=== PATIENT | female | born 1960 | race Caucasian/White ===

== ENCOUNTER 2018-07-10 11:53 | Outpatient (CLI) | payer OTHER, SELFPAY ==
[2018-07-10 13:30] LABS: ALT 40 U/L (12-78); AST 20 U/L (15-37); Albumin 3.6 g/dL (3.4-5.0); Alkaline Phosphatase 85 U/L (46-116); Anion Gap 6.6 mmol/L (3-11); BUN 16 mg/dL (7-18); Bilirubin, Total 1.1 mg/dL (0.2-1.0); CO2 31.4 mmol/L (21.0-32.0); CREATININE 0.71 mg/dL (0.55-1.02); Chloride 104 mmol/L (98-107); Cholesterol 192 mg/dL (50-200); Glucose 85 mg/dL (70-100); HDL Cholesterol 53 mg/dL (40-60); LDL CHOLESTEROL 131 mg/dL (<100); Sodium 142 mmol/L (136-145); Total Protein 6.8 g/dL (6.4-8.2); Triglyceride 56 mg/dL (30-150)
== END 2018-07-10 12:13 ==
PROVIDERS: PCP Family Medicine; Visit Provider Family Medicine
DX: Z00.00 Encounter for general adult medical examination without abnormal findings (principal); I10 Essential (primary) hypertension
CPT/HCPCS: 36415; 80053; 80061; 83721

== ENCOUNTER 2018-07-10 12:20 | Outpatient (REF) | payer OTHER, SELFPAY ==
--- NOTE | 2018-07-10 11:00 | PAPFT_PTH ---
PATIENT: Marielle Summers LOC: [facility] U#:[id number] AGE/SX: 58/F ROOM: RE07/10/[address]: Rosi De Leon MD, DC : 1960 BED: DIS: 07/10/2018 SPEC #: [id number] RECD: 07/10/18 12:59 STATUS: KAYLA RAMSEY #: [id number] ASMITA: 07/10/18 11:[address]: Rosi De Leon DEPT: [facility] Cytology RECD BY: Mayelin Santos Tissues: 1 - CX/ENDOCX FOR PAP SMEARS Procedures: PAP THIN PREP/UVM Screening HPV DNA PROBE Comments: [id number]
== END 2018-07-10 12:40 ==
LOC: LBN 12:20
PROVIDERS: PCP Family Medicine; Visit Provider Family Medicine
DX: Z12.4 Encounter for screening for malignant neoplasm of cervix (principal); Z11.51 Encounter for screening for human papillomavirus (HPV)
CPT/HCPCS: 88142; 87624

== ENCOUNTER 2018-07-18 01:38 | Outpatient (CLI) | payer OTHER, SELFPAY ==
--- NOTE | 2018-07-18 08:00 | DI.MAMMO_ITS ---
SYMPTOM/DIAGNOSIS: SCREENING, Z12.31 MAMMOGRAMS: Mammograms were interpreted according to the usual protocol including computer analysis with CAD system, tomosynthesis and C view imaging. The breast tissue is of moderate radiodensity. Small, well circumscribed bilateral areas of nodularity are demonstrated and appear stable when compared with previous images. There are no suspicious calcifications. SUMMARY: No interval change. No evidence of malignancy. Category 2, yearly screening mammography is recommended. Breast density, category B. MQSA ASSESSMENT OF FINDINGS: Negative with benign findings. Category 2. Patient will receive a letter notifying them of these results. BI-RADS category B. There are scattered areas of fibroglandular density.
== END 2018-07-18 01:58 ==
PROVIDERS: PCP Family Medicine; Visit Provider Family Medicine
DX: Z12.31 Encounter for screening mammogram for malignant neoplasm of breast (principal)
CPT/HCPCS: 77063; 77067

== ENCOUNTER 2018-09-13 00:32 | Outpatient (CLI) | payer OTHER, SELFPAY ==
--- NOTE | 2018-09-13 11:29 | DI.MRI_ITS ---
SYMPTOMS/DIAGNOSIS: SPRAIN OF LEFT SHOULDER S/P FALL ON MARCH 27, 2018, S43.492A, M99.01, M99.02 MRI OF THE LEFT SHOULDER: Axial T2 fat-sat, axial proton density, coronal T2 fat-sat and coronal proton density and sagittal T2 fat-sat and sagittal T1 pulse sequences were performed. The bony signal is normal. The supraspinatus, infraspinatus, subscapularis and biceps tendons are intact. There is nothing to suggest a labral tear. SUMMARY: No evidence of a fracture. No evidence of an internal derangement.
== END 2018-09-13 00:52 ==
PROVIDERS: PCP Family Medicine; Visit Provider Chiropractor
DX: S43.492A Other sprain of left shoulder joint, initial encounter (principal); Z91.81 History of falling
CPT/HCPCS: 73221

== ENCOUNTER 2019-03-05 13:13 | Outpatient (CLI) | payer OTHER, SELFPAY ==
[2019-03-05 14:31] LABS: ALT 35 U/L (14-59); AST 19 U/L (15-37); Albumin 3.8 g/dL (3.4-5.0); Alkaline Phosphatase 99 U/L (46-116); BUN 15 mg/dL (7-18); Bilirubin, Total 1.1 mg/dL (0.2-1.0); CREATININE 0.74 mg/dL (0.55-1.02); Calculated LDL 119 mg/dL; Chloride 104 mmol/L (98-107); Cholesterol 189 mg/dL (50-200); Glucose 91 mg/dL (70-100); HDL Cholesterol 55 mg/dL (40-60); Sodium 141 mmol/L (136-145); TSH (W/Ref FT4) 1.44 uIU/mL (0.36-3.74); Total Protein 6.9 g/dL (6.4-8.2); Triglyceride 75 mg/dL (30-150)
== END 2019-03-05 13:33 ==
PROVIDERS: PCP Family Medicine; Visit Provider Family Medicine
DX: R00.2 Palpitations (principal); R19.8 Other specified symptoms and signs involving the digestive system and abdomen
CPT/HCPCS: 36415; 80053; 80061; 84443

== ENCOUNTER 2019-03-07 00:57 | Outpatient (CLI) | payer OTHER, SELFPAY ==
--- NOTE | 2019-03-07 07:37 | DI.RAD_ITS ---
SYMPTOM/DIAGNOSIS: CP, HIATAL HERNIA R07.9 PA AND LATERAL CHEST: 03/07 The heart is normal in size. The lungs are clear. The mediastinal structures and pleura appear intact. CONCLUSION: Normal chest.
--- NOTE | 2019-03-07 07:37 | DI.US_ITS ---
SYMPTOM/DIAGNOSIS: ABDOMINAL PAIN, MOSS STOOLS, R19.8 SYMPTOMS INVOLVING DIGESTIVE SYSTEM ABDOMINAL ULTRASOUND: 03/07 The visualized liver parenchyma normal in appearance. Note is made of cholelithiasis with multiple small gallstones seen. No biliary dilatation. Gallbladder wall is not thickened and there is no pericholecystic fluid collection. Kidneys are unremarkable in appearance. Incidental simple 3 cm left renal cyst noted. The spleen appears normal. Abdominal aorta and IVC are of normal diameter. CONCLUSION: Cholelithiasis. There appear to be at least a couple small gallbladder polyps as well.
== END 2019-03-07 01:17 ==
PROVIDERS: PCP Family Medicine; Visit Provider Family Medicine
DX: R10.9 Unspecified abdominal pain (principal); R19.5 Other fecal abnormalities; K80.20 Calculus of gallbladder without cholecystitis without obstruction; K82.4 Cholesterolosis of gallbladder; R07.9 Chest pain, unspecified
CPT/HCPCS: 71046; 76700

== ENCOUNTER 2019-03-18 09:00 | Day surgery (SDC) | payer OTHER, SELFPAY ==
--- NOTE | 2019-03-18 06:41 | ENDO_ITS ---
Date of service: 03/18/19 Time of Service: 10:39 Endoscopy Report DATE OF PROCEDURE: 03/18/19 PRE-OP DIAGNOSIS: Dysphagia, Nausea and Vomiting POST-OP DIAGNOSIS: other (Gastritis, esophagitis, Hiatal Hernia) PROCEDURE: EGD with biopsies SURGEON: Izzy Norman ANESTHESIA: other (General/ ASA 2/Phan Lees CRNA) ESTIMATED BLOOD LOSS: 3 PATHOLOGY: other (Pylorus, Antrum, GE junction) COMPLICATIONS: None DISPOSITION: same day INDICATIONS: Mrs. Summers is a pleasant 59 year old female seen in the office for progressive dysphagia, bloating, Nausea and Vomiting. Risks, benefits and complications have been reviewed. Complications include but are not limited to bleeding, pain, perforation, sore throat, aspiration, and adverse reaction to the medications. Questions were entertained and answered to their satisfaction and they wished to proceed. No guarantees were given or implied. FINDINGS: 1. 3 cm Hiatal hernia 2. moderate gastritis and esophagitis 3. Schatzki's ring PROCEDURE DESCRIPTION: After informed consent was obtained the patient was take to the procedure room and placed in a supine position. Monitors were applied and a time out was done. The patients name, date of , procedure type, allergies to medications and metal in their body was reviewed. A bite block was placed and the patient was sedated. Once sedated and comfortable the gastroscope was advanced through the oropharynx which was grossly normal into the esophagus. The proximal and mid- esophagus were normal. Normal peristalsis was observed. In the distal esophagus there was moderate inflammation noted. The scope was advanced into the stomach and through the pylorus into the 3rd portion of the duodenum. The duodenum was noted to be normal. The pylorus seemed tight at first but I was able to get the scope through without trouble. The scope was retracted back into the stomach and biopsies were done to rule out H. pylori. Biopsies were done of the pylorus as well. There were no ulcers. The scope was retroflexed. The cardia and fundus were noted to be normal. There was a small hiatal hernia noted. The scope was retracted back into the esophagus and biopsies were done of the GE junction to rule out Ortiz's. The Z line was irregular. The GE junction was at 32 cm. There was some inflammation and a ring of scar tissue. The scope was removed and the patient was woken up and taken back to [facility] in stable condition. Follow up: 2 week in the office. Start Omeprazole 40 mg daily and Carafate AC and HS x 2 weeks.
--- NOTE | 2019-03-18 06:43 | PDOC.DSDIS_ITS ---
Discharge Plan Disposition Patient Disposition: HOME Condition: Good Discharge Details Reason For Visit: Dysphagia Attending Provider: Izzy Norman Primary Care Provider: Rosi De Leon Home Meds and New Rx's Prescriptions: New sucralfate [Carafate] 1 gram tablet 1 gm PO Q6H Qty: 56 RF: 0 esomeprazole magnesium [Heartburn Treatment] 20 mg capsule,delayed release(DR/EC) 40 mg PO DAILY Qty: 60 RF: 0 Continued doxazosin 8 mg tablet 8 mg PO DAILY RF: 0 Ligaplex Supplement 1 tab 2 tab PO DAILY RF: 0 albuterol sulfate 90 mcg/actuation HFA aerosol inhaler 2 puff IH Q6H PRNRF: 0 acetaminophen [Tylenol Extra Strength] 500 MG tablet 2 tab PO HS PRNRF: 0 calcium carbonate-vitamin D3 [Caltrate with Vitamin D3] 1 EACH tablet 1 tab PO DAILY RF: 0 cholecalciferol (vitamin D3) [Vitamin D3] 2,000 UNIT capsule 2,000 unit PO DAILY RF: 0 metoprolol succinate 100 mg tablet extended release 24 hr 100 mg PO DAILY Qty: 90 RF: 4 Excedrin Migraine 1 EACH tablet 1 tab PO PRN PRNRF: 0 Discharge Instructions Instructions: Gastritis (DC), Diet for Stomach Ulcers and Gastritis (GEN), Upper Endoscopy (DC), Esophagitis (DC) Additional Instructions: Findings: Inflammation of the stomach, and esophagus Scar tissue in the esophagus Hiatal Hernia Follow up: 2 weeks Please call if you develop: fevers >101.5 Nausea or Vomiting Abdominal pain that is not transient DAY SURGERY UNIT POST ENDOSCOPY INSTRUCTIONS 1. Because there will be medication in your system for the next 24 hours, you may feel a little sleepy. Your coordination will be affected. Therefore: a. Do not drive or operate dangerous equipment for 24 hours. b. Do not drink alcohol beverages for 24 hours (not even beer). c. Plan to go home and rest for the day. 2. Generally there are no restrictions on your activity after a day or so has gone by, but you may feel a bit fatigued for a few days. 3 After you arrive home you may have a light meal and return to a normal diet as you can tolerate it without feeling sick to your stomach. 4. After surgery, you may feel pain or discomfort. This should be only transient , but if it persists please contact your doctor. 5. If there are any questions regarding the findings of your procedure, please feel free to contact your doctor. 6. If you are unable to contact your doctor with a problem, contact the hospital at [phone]. 7. Continue all your regular medications unless directed otherwise. I understand the above instructions and have no questions. Signature of Patient or Responsible Adult Escort Date/Time Name of Responsible Adult Escort Signature of Nurse Date/Time Activity:: Activity as Tolerated Diet:: low acid diet Discharge Orders Discharge Orders: Discharge Order (Routine); Ordered 03/18/19 Ordered By: Izzy Norman DS: Diagnosis Discharge Diagnosis (1) H/O esophagogastroduodenoscopy: Status: Chronic (2) Dysphagia: Status: Acute (3) Gastritis: Status: Acute (4) Esophagitis determined by endoscopy: Status: Acute (5) Schatzki's ring of distal esophagus: Status: Acute
[2019-03-18 09:19] VITALS: BP 131/84; PULSE 70; RESP 15; TEMP 36.5; O2SAT 97
[2019-03-18] MEDS: Lactated Ringers 1,000 ML 80 ML IV (09:32)
--- NOTE | 2019-03-18 10:42 | STOM_PTH ---
PATIENT: Marielle Summers LOC: [facility] U#:[id number] AGE/SX: 59/F ROOM: RE03/18/[address]: Izzy Norman MD : 1960 BED: DIS: 03/18/2019 SPEC #: [id number] RECD: 03/18/19 12:46 STATUS: KAYLA RE #: [id number] ASMITA: 03/18/19 10:[address]: Izzy Norman DEPT: Surgical Specimen RECD BY: Mayelin Santos ENTERED: 03/18/19 12:48 SP TYPE: STOMACH OTHR DR: Rosi De Leon MD, DC Tissues: 1 - STOMACH BIOPSY 2 - STOMACH BIOPSY 3 - ESOPHAGUS BIOPSY Procedures: GROSS AND MICRO LEVEL 4 Comments: [id number]
[2019-03-18 11:35] VITALS: BP 128/69; PULSE 62; RESP 16; TEMP 36; O2SAT 98
== END 2019-03-18 11:50 | disposition home or self-care (01) ==
LOC: SUR 09:01
PROVIDERS: PCP Family Medicine; Visit Provider Surgery
PROC: 0DJ68ZZ Inspection of Stomach, Via Natural or Artificial Opening Endoscopic (ICD-10-PCS; CPT 43235; principal; 2019-03-18 10:30)
DX: R13.10 Dysphagia, unspecified (principal); R14.0 Abdominal distension (gaseous); R11.10 Vomiting, unspecified; K21.0 Gastro-esophageal reflux disease with esophagitis; K44.9 Diaphragmatic hernia without obstruction or gangrene; K22.2 Esophageal obstruction; I10 Essential (primary) hypertension
CPT/HCPCS: 43239; 88305

== ENCOUNTER 2019-08-14 02:28 | Outpatient (CLI) | payer OTHER, SELFPAY ==
--- NOTE | 2019-08-14 07:50 | DI.MAMMO_ITS ---
EXAM: MG MAMMO SCREENING CLINICAL HISTORY: screening,Z12.39. TECHNIQUE: Bilateral full field digital CC and MLO mammographic images were obtained with 3D tomosyn thesis and utilizing computer aided detection (CAD). COMPARISON: Available for comparison. FINDINGS: Masses/Architectural Distortion: Stable bilateral nodules. No suspicious nodules. Microcalcifications: No suspicious pleomorphic-type are seen. Skin Thickening/Nipple Retraction: None. IMPRESSION: 1. No significant interval change with no specific features of malignancy noted. 2. Unless there is more urgent need, screening mammography is recommended, as per [employer] guidelines. ACR BI-RAD Category- 1 Negative Breast Density - Category B - Scattered areas of fibroglandular density A negative radiographic report should not delay biopsy if a dominant or clinically suspicious mass is present. Up to ten percent of cancers are not identified on mammography. A negative report may reinforce clinical impression. Adenosis and dense breasts may obscure an underlying neoplasm. False positive reports average 6 to 10%. Patient will receive a letter notifying them of these results.
== END 2019-08-14 02:48 ==
PROVIDERS: PCP Family Medicine; Visit Provider Family Medicine
DX: Z12.31 Encounter for screening mammogram for malignant neoplasm of breast (principal)
CPT/HCPCS: 77063; 77067

== ENCOUNTER 2019-10-04 15:00 | Outpatient (REF) | payer OTHER, SELFPAY ==
[2019-10-04 16:37] LABS: Bilirubin Negative (Negative); Blood Large (Negative); Clarity Clear (Clear); Glucose Negative (Negative); Ketones Negative (Negative); Leukocyte Esterase Moderate (Negative); Nitrite Negative (Negative); Urobilinogen 0.2 EU/dL (Up TO 0.2); pH 6.5 (5-8)
[2019-10-04 16:48] LABS: Bacteria Moderate HPF (Negative); C & S Indicated? Yes; Casts Negative LPF (Negative); Crystals Negative HPF (Negative); Epithelial Cells Rare HPF (Negative); Mucus Negative (Negative); Other Cells Few Renal (Negative); RBC >50 HPF (0-2); WBC 20-50 HPF (0-5)
== END 2019-10-04 15:20 ==
LOC: LBN 15:00
PROVIDERS: PCP Family Medicine; Visit Provider Family Medicine
DX: N39.0 Urinary tract infection, site not specified (principal); R35.0 Frequency of micturition
CPT/HCPCS: 81003; 81015; 87086

== ENCOUNTER 2019-10-23 08:05 | Emergency (ER) | payer OTHER, SELFPAY ==
[2019-10-23] VITALS (27 sets, daily range): BP systolic 122–198; BP diastolic 59–86; PULSE 44–77; RESP 11–29; TEMP 36.6; O2SAT 72–99
--- NOTE | 2019-10-23 08:14 | ED.GENADUL_ITS ---
Discharge Plan Disposition Patient Disposition: HOME Condition: Good Discharge Details Chief Complaint: Abd Prob Clinical Impression: Urolithiasis, Right flank pain Primary Care Provider: Rosi De Leon ED Provider: Juanito Ortega Home Meds and New Rx's Prescriptions: Continued albuterol sulfate 90 mcg/actuation HFA aerosol inhaler 2 puff IH Q6H PRN (Reason: bronchospasm) Qty: 18 RF: 4 doxazosin 8 mg tablet 8 mg PO DAILY Qty: 90 RF: 5 esomeprazole magnesium [Heartburn Treatment] 20 mg capsule,delayed release(DR/EC) 20 mg PO DAILY Qty: 90 RF: 5 metoprolol succinate 100 mg tablet extended release 24 hr 100 mg PO DAILY Qty: 90 RF: 4 calcium carbonate-vitamin D3 [Caltrate with Vitamin D3] 1 EACH tablet 1 tab PO DAILY RF: 0 cholecalciferol (vitamin D3) [Vitamin D3] 2,000 UNIT capsule 2,000 unit PO DAILY RF: 0 Excedrin Migraine 1 EACH tablet 1 tab PO PRN PRNRF: 0 Discharge Instructions Instructions: Kidney Stones (ED) Additional Instructions: This time your work-up shows that you have a kidney stone, I suspect that you have passed it by this time as your pain is gone. Please take Tylenol or Motrin as needed if you have any return of your pain. Please drink plenty of fluids, stay well-hydrated and follow-up closely with Dr. Aguiar's clinic. Please take the Zofran as needed for nausea. If you notice any worsening of your symptoms, or any new symptoms such as vomiting, diarrhea, fever, chills, shortness of breath, chest pain, numbness, weakness, or fainting , please return immediately to the emergency department for reevaluation. Please follow up with your primary care provider as soon as possible for reassessment and reevaluation. As always, it was a pleasure participating in your medical care today. Referrals: Corky Aguiar MD [ [facility] STAFF PHYSICIAN] - Rosi De Leon MD, [place] [Primary Care Provider] - Medical Decision Making This is a 59-year-old female with past medical history of hypertension who presents today for evaluation of right flank pain. Patient states that this morning the pain came on suddenly, sharp and achy in nature, and radiates from her right flank all the way to her right mid anterior abdomen. She does admit to vomiting and occasional loose stool but denies any hematemesis hematochezia or melena. She does admit to notable dysuria in conjunction with mild hematuria. She denies history of kidney stones in the distant past but does state that earlier this months she had symptoms of UTI, was started on Cipro, and did pass a stone at the end. Patient denies any other complaints at this time. Past surgical history is positive for appendectomy. She does have known gallstones. She denies any tearing or ripping sensation in her abdomen, she denies any chest pain, chest tightness, chest heaviness. She denies any history of cardiac disease. Physical exam demonstrates mild to moderate reproducible right-sided tenderness, mild CVA tenderness. Urine does demonstrate hematuria. Differential is highest for kidney stone, but also includes gallbladder pathology and less likely diverticulitis. We will treat the patient's pain, hydrate, get a renal study monitor closely and reassess. 9:25 AM Personal review of CT scan does show a 5 mm kidney stone with mild to moderate hydronephrosis on the right. Renal function stable, no evidence of urinary tract infection, and blood work is otherwise unremarkable with no evidence of renal impact. However in spite of this the patient's pain has been remarkably difficult to control. Patient is already received 2 mg of Dilaudid, 4 mg of morphine, Toradol, 8 of Zofran, Flomax, and has had almost no relief of her symptoms at all. Patient does state that she is used opiates in the past for headaches but this is in the very distant past and she has not used any opiates for years. I did discuss with her the option of using ketamine as well as the risk and benefits and she is open to this. We will use low-dose ketamine for potential treatment of her pain at 0.2 mg/kg. Patient states that she is still in excruciating pain and would like this. 9:38 AM Radiology/Dr. Frederick contacted us, CT scan does show evidence of 5 mm stone in conjunction with mild to moderate hydronephrosis. No evidence of urinoma at this point. Subtherapeutic dose ketamine was given, unfortunately the patient had an episode of vomiting with this, she was upright at 90 degrees, vomitus was, oxygenation remained stable. She was placed on supplemental oxygen as a precaution. She remained stable. No evidence of airway compromise, respiratory compromise. Thankfully her pain did resolve with this, unfortunately her nausea persists. We will contact urology for potential admission as I do not feel that the patient would be a good candidate for discharge with her pain and symptomatology. Of note CT scan did show evidence of mild cardiomegaly and small bilateral pleural effusions, clinically she shows no evidence of heart failure on exam. No significant pitting edema. Minimal trace pitting edema in lower extremities bilaterally. No signs of significant CHF. 1 PM An extended period of time was spent observing the patient, all supplemental oxygen was removed and she had no residual hypoxemia whatsoever after the episode of vomiting. Portable chest x-ray shows no evidence of aspiration pneumonitis. After notable observation. For the complete removal of the effects of ketamine the patient actually has complete resolution of her pain. It is potential that the patient has passed the stone at this time. She has had mild nausea, however this is slowly and gradually improved. After taking a nap she is awoken and feels much better. She is asking to go home. I did discuss with the patient admission/observation to the hospital , and at this time through notable discussion, weighing the risks and benefits, utilizing a shared decision making process, and with a very clear discussion on the benefit of admission and the risks associated with discharge including the unlikely but potential worst case scenario of or lifelong disability the patient has refused admission and would like to go home. Patient is of a appropriate age to make decisions. The patient is of sound mind, appears clinically sober, and has capacity to make decisions by my clinical exam. Respecting the patient's wishes, they will be discharged home. At this time with the complete resolution of her pain I suspect that the stone is passed, and that respecting her wishes she can be discharged home. We will place her on the list for follow-up with urology. I did contact urology and discussed the entirety of the case with him as well. I have extensively reviewed the treatment plan and discharge instructions with the patient. I have addressed all patient concerns at this time. The patient was made aware of what symptoms to monitor for that would warrant a return to the emergency department. Discussed the plan with the patient, they demonstrate verbal understanding and agreement with our assessment and plan at this time. IMPRESSION: Obstructing 4 millimeter distal right ureteral calculus, marked right hydronephrosis. Nonobstructing right renal calculus also noted Cardiomegaly and small bilateral pleural effusions noted. FINDINGS: Portable AP chest obtained at 1020 hours. The heart is not enlarged. Lungs are clear. No evidence of consolidation or atelectasis. No pleural effusion on this frontal film. IMPRESSION: Negative AP chest. EKG 8: 33 Rate 66, intervals normal, sinus rhythm, no significant ST elevations or depressions, no evidence of STEMI. No Q waves. HPI General Date/Time Provider Initiated Documentation: 10/23/19 08:05 . HPI Narrative: This is a 59-year-old female with past medical history of hypertension who presents today for evaluation of right flank pain. Patient states that this morning the pain came on suddenly, sharp and achy in nature, and radiates from her right flank all the way to her right mid anterior abdomen. She does admit to vomiting and occasional loose stool but denies any hematemesis hematochezia or melena. She does admit to notable dysuria in conjunction with mild hematuria. She denies history of kidney stones in the distant past but does state that earlier this months she had symptoms of UTI, was started on Cipro, and did pass a stone at the end. Patient denies any other complaints at this time. Past surgical history is positive for appendectomy. She does have known gallstones. She denies any tearing or ripping sensation in her abdomen, she denies any chest pain, chest tightness, chest heaviness. She denies any history of cardiac disease. Related Data Home Medications Medication Instructions Recorded Confirmed calcium carbonate-vitamin D3 1 tab PO DAILY 10/16/12 10/23/19 [Caltrate with Vitamin D3] Excedrin Migraine 1 tab PO PRN PRN 05/25/15 10/23/19 cholecalciferol (vitamin D3) 2,000 unit PO DAILY 06/15/17 10/23/19 [Vitamin D3] albuterol sulfate 90 mcg/actuation 2 puff IH Q6H PRN #18 gm 07/15/19 10/23/19 aerosol inhaler doxazosin 8 mg tablet 8 mg PO DAILY #90 tab 07/15/19 10/23/19 esomeprazole magnesium 20 mg 20 mg PO DAILY #90 cap 07/15/19 10/23/19 capsule,delayed release metoprolol succinate 100 mg 100 mg PO DAILY #90 tab 07/15/19 10/23/19 tablet,extended release 24 hr Previous Rx's Medication Instructions Recorded albuterol sulfate 90 mcg/actuation 2 puff IH Q6H PRN #18 gm 07/15/19 aerosol inhaler doxazosin 8 mg tablet 8 mg PO DAILY #90 tab 07/15/19 esomeprazole magnesium 20 mg 20 mg PO DAILY #90 cap 07/15/19 capsule,delayed release metoprolol succinate 100 mg 100 mg PO DAILY #90 tab 07/15/19 tablet,extended release 24 hr Allergies Allergy/AdvReac Type Severity Reaction Status Date / Time sumatriptan Allergy Severe CAN'T Unverified 10/23/19 08:13 BREATHE amlodipine AdvReac Intermediate edema Unverified 10/23/19 08:13 hydrochlorothiazide AdvReac Intermediate rash Unverified 10/23/19 08:13 [From Hyzaar] losartan potassium AdvReac Intermediate rash Unverified 10/23/19 08:13 [From Hyzaar] codeine AdvReac Mild RASH Unverified 10/23/19 08:13 lisinopril AdvReac Cough Unverified 10/23/19 08:13 General Stated Complaint: Abd Prob SURI: 3 Review of Systems All systems reviewed & are unremarkable except as noted in HPI and below PFSH Medical History (Updated 10/23/19 @ 13:00 by Juanito Ortega DO) Actinic keratosis (Chronic 06/09/16) Annual physical exam (Acute 05/25/15) Dysphagia (Inactive) Edema (Chronic) Esophagitis determined by endoscopy (Inactive) Essential hypertension (Chronic 06/12/13) Gastroesophageal reflux disease with esophagitis (Resolved 04/05/11) Hiatal hernia (Resolved) Internal hemorrhoids without complication (Chronic) Rectocele (Chronic) Rotator cuff syndrome of shoulder and allied disorders (Resolved) 10/30/12 Rotator cuff syndrome of shoulder and allied disorders (Inactive 10/30/12) Schatzki's ring of distal esophagus (Inactive) Visual disturbance (Resolved) 04/05/11 Surgical History (Updated 04/19/19 @ 08:46 by Izzy Norman MD) Cervical Procedure (05/25/15) exam under anesthesia and cauterization of bleeding endometrial polyp stalk. aoc H/O esophagogastroduodenoscopy (Resolved ~03/18/19) History of appendectomy (Chronic) History of gynecologic surgery (Resolved) 04/26/15 exam under anesthesia and cauterization of bleeding endometrial polyp stalk History of gynecological procedure (Inactive) Family History (Updated 07/16/19 @ 10:27 by Germán Parada) Mother Essential hypertension Breast cancer Uterine cancer Father , age 76 Diabetes Essential hypertension Heart disease Hyperlipidemia Skin cancer Sister Diabetes Essential hypertension Hyperlipidemia Maternal Grandfather No problems noted. Paternal Grandfather , age 66 Essential hypertension Heart disease Hyperlipidemia Maternal Grandmother , AGE 82 Diabetes Essential hypertension Heart disease COPD (chronic obstructive pulmonary disease) Paternal Grandmother , age 73 Kidney failure Sister Essential hypertension Son Alcohol abuse Essential hypertension Daughter No problems noted. Daughter No problems noted. Brother Alcohol abuse Stroke Social History (Updated 07/16/19 @ 10:24 by Germán Parada) Smoking/Tobacco Use Status: Never Alcohol Intake: current Alcohol Intake frequency: holidays/special occasions only Drug use: Never Substance use type: does not use Caregiver/Support person: No Household members: none Housing: house Communication Needs: None Do you need help understanding health information?: Never Pets and animals: Yes Pets and animals: dog(s) Sexually active: Yes Do you think of yourself as: straight/heterosexual Current gender identity: female What is your relationship status?: How often do you talk on the phone with friends or family?: decline to answer How often do you get together with friends or relatives?: decline to answer How often do you attend confucianist or rastafarian services?: decline to answer Do you belong to any clubs or organized social groups?: no Panel score (0-1 are the most socially isolated patients): 0 What type of physical activity do you participate in: decline to answer Duration: decline to answer Frequency: decline to answer Roslyn/Anabaptist: Orthodoxy Special roslyn needs: No Seatbelt use: always Helmet use: No Drive intox or ride w/intox peg driver: No Do you feel safe at home: Yes Do you feel safe in your relationship?: Yes Exam Narrative Exam Narrative: 1.Const: Well-nourished, Well-developed, appearing stated age 2.Eyes: PERRL, no conjunctival injection, and symmetrical lids. 3.ENT: Atraumatic external nose and ears. Moist MM. Neck: Symmetric, trachea midline, No thyromegaly. 4.CVS: +S1/S2, No murmurs or gallops. Peripheral pulses 2+ and equal in all extremities. Brisk capillary refill in all extremities. 5.RESP: Unlabored respiratory effort. Clear to auscultation bilaterally. No wheezes rales or rhonchi 6.GI: Soft, nondistended, mild to moderate right-sided abdominal tenderness for the right mid and right lower abdominal quadrants. Mild right CVA tenderness. No left-sided tenderness. Negative Barcenas sign 7.MSK: Normocephalic/Atraumatic, Extremities w/o deformity or ttp No cyanosis or clubbing, Normal movement of all extremities 8.Skin: Warm, Dry. No rashes or lesions. 9.Neuro: sap director II-XII grossly intact. Sensation grossly intact, no focal neurologic deficits. 10.Psych: (AAO) x3. Appropriate mood and affect Course Vital Signs Vital signs: Vital Signs Temperature 36.6 C 10/23/19 08:09 Pulse 77 10/23/19 08:09 Respiratory Rate 19 10/23/19 08:09 Blood Pressure 198/82 H 10/23/19 08:09 Pulse Oximetry 98 10/23/19 08:09 Temperature 36.6 C 10/23/19 08:09 Pulse 77 10/23/19 08:09 Respiratory Rate 19 10/23/19 08:09 Blood Pressure 198/82 H 10/23/19 08:09 Blood Pressure Position Supine 10/23/19 08:09 Pulse Oximetry 98 10/23/19 08:09 Oxygen Delivery Method Room Air 10/23/19 08:09 Oxygen Flow Rate 0 10/23/19 08:09 Pain Level 9 10/23/19 08:09
[2019-10-23] MEDS: Ketorolac 15 MG/ML VIAL IVP ×2 (08:22→10:07)
[2019-10-23] MEDS: Normal Saline 500 ML IV (08:23)
[2019-10-23] MEDS: Ondansetron 4 MG/2 ML VIAL IVP ×3 (08:24→09:10)
[2019-10-23] MEDS: HYDROmorphone 2 MG/ML VIAL 1 MG IVP ×2 (08:25→08:43)
[2019-10-23 08:26] LABS: Bilirubin Negative (Negative); Blood Large (Negative); Clarity Cloudy (Clear); Glucose Negative (Negative); Ketones Negative (Negative); Leukocyte Esterase Negative (Negative); Nitrite Negative (Negative); Specific Gravity >= 1.030 (1.005-1.025); Urobilinogen 0.2 EU/dL (Up TO 0.2)
[2019-10-23 08:32] LABS: Abs Immature Grans 0.02 k/cumm (0.0-0.09); Absolute Basophil Count 0.02 k/cumm (0.0-0.2); Absolute Lymphocyte Count 2.23 k/cumm (1.2-3.4); Absolute Monocyte Count 0.31 k/cumm (0.11-0.7); Absolute Neutrophil Count 3.42 k/cumm (1.2-6.7); Basophils % 0.3; HCT 44.1 % (36.0-46.0); HGB 14.2 g/dL (12.0-15.5); Immature Grans % 0.3 %; Lymphocytes % 37.2; Mean Corp. HGB Concentration 32.2 g/dL (32.0-36.0); Mean Corpuscular Hemoglobin 28.4 pg (27.0-33.0); Mean Corpuscular Volume 88.2 fL (80-95); Monocytes % 5.2; Platelet Count 320 x1000/uL (130-400); RBC Distribution Width 13.7 % (11.7-14.6)
[2019-10-23 08:35] LABS: Bacteria Few HPF (Negative); Epithelial Cells Moderate HPF (Negative); RBC >50 HPF (0-2); WBC 0-2 HPF (0-5)
[2019-10-23 08:36] LABS: C & S Indicated? No/Sq. Contamination
[2019-10-23 08:44] LABS: ALT 39 U/L (14-59); AST 21 U/L (15-37); Albumin 3.6 g/dL (3.4-5.0); Alkaline Phosphatase 95 U/L (46-116); Anion Gap 6.7 mmol/L (3-11); BUN 14 mg/dL (7-18); CO2 29.3 mmol/L (21.0-32.0); CREATININE 0.85 mg/dL (0.55-1.02); Calcium 9.2 mg/dL (8.5-10.1); Chloride 104 mmol/L (98-107); Glucose 132 mg/dL (74-106); Lipase 64 U/L (73-393); Potassium 3.6 mmol/L (3.5-5.1); Sodium 140 mmol/L (136-145); Total Protein 7.3 g/dL (6.4-8.2)
[2019-10-23 08:45] LABS: Troponin I < 0.05 ng/Ml (<0.06)
--- NOTE | 2019-10-23 08:59 | DI.CT_ITS ---
EXAM: CT RENAL COLIC WO CLINICAL HISTORY: right flank pain, hematuria TECHNIQUE: COMPARISON: No exams were available for comparison FINDINGS: CT examination of the abdomen and pelvis was performed without contrast administration. Note is made of small bilateral pleural effusions and there appears to be cardiomegaly. Visualized portions of liver and spleen are unremarkable. Pancreas appears intact by noncontrast CT criteria. Gallbladder and bile ducts are unremarkable. Abdominal aorta is of normal diameter. No significant abdominal wall hernia. No significant abdominal or pelvic adenopathy. Appendix not visualized. No evidence of diverticulitis or bowel obstruction. Food Mixer Assembler structures are unr emarkable for age. Adrenals appear normal bilaterally. Left kidney contains a fluid attenuation mass measuring 3 cm in diameter consistent with simple cyst. No left-sided hydronephrosis nephrolithiasis, or ureterolithia sis. Urinary bladder is essentially empty. Right kidney is markedly hydronephrotic. There is a nonobstructing midpole renal calculus on the rig ht. There is marked ureteral dilatation to the level of the right hip joint where there is an obstru cting 4 millimeter in diameter calculus a few cm above the ureterovesical junction. IMPRESSION: Obstructing 4 millimeter distal right ureteral calculus, marked right hydronephrosis. Nonobstructing right renal calculus also noted Cardiomegaly and small bilateral pleural effusions noted.
[2019-10-23] MEDS: Tamsulosin 0.4 MG CAPCR 0.8 MG PO (09:15)
[2019-10-23] MEDS: Ketamine 500 MG/10 ML VIAL 18 MG IVP (09:29)
--- NOTE | 2019-10-23 10:00 | DI.RAD_ITS ---
EXAM: XR PORTABLE CHEST AP CLINICAL HISTORY: vomited, r/o aspiration TECHNIQUE: COMPARISON: XR CHEST 2V PA LATERAL from 03/07/2019 FINDINGS: Portable AP chest obtained at 1020 hours. The heart is not enlarged. Lungs are clear. No evidence of consolidation or atelectasis. No pleural effusion on this frontal film. IMPRESSION: Negative AP chest.
[2019-10-23] MEDS: ACETAMINOPHEN 1,000 MG/100 ML BTL 400 MG IVPB (10:06)
[2019-10-23] MEDS: Metoclopramide 10 MG/2 ML VIAL IVP (10:14)
[2019-10-23] MEDS: Ondansetron O.D.T. 4 MG TABEF, 3 TABS/BTL PO (13:07)
--- NOTE | 2019-10-23 18:25 | NUR.NOTE ---
Nursing Note:Faxed Referral to urology
== END 2019-10-23 14:10 | disposition home or self-care (01) ==
PROVIDERS: Emergency Provider Student in an Organized Health Care Education/Training Program; PCP Family Medicine
DX: N13.2 Hydronephrosis with renal and ureteral calculous obstruction (principal); M54.5 Low back pain; I10 Essential (primary) hypertension; N20.0 Calculus of kidney; R09.02 Hypoxemia
CPT/HCPCS: 80053; 83690; 93005; 96361; 96374; 96375; 96376; 99284; 71045; 74176; 81003; 81015; 84484; 85025; 93010; J0131; J1885; J2405; J2765

== ENCOUNTER 2019-10-30 08:50 | Outpatient (CLI) | payer OTHER, SELFPAY ==
[2019-10-31 15:51] LABS: COVID-19 RT-PCR UVMMC Result Negative (Negative)
== END 2019-10-30 09:10 ==
PROVIDERS: PCP Family Medicine; Visit Provider Urology
DX: Z11.59 Encounter for screening for other viral diseases (principal)
CPT/HCPCS: U0003

== ENCOUNTER 2019-11-04 07:14 | Day surgery (SDC) | payer OTHER, SELFPAY ==
[2019-11-04] VITALS (9 sets, daily range): BP systolic 124–147; BP diastolic 58–95; PULSE 71–87; RESP 16–18; TEMP 36.4–37; O2SAT 93–98
--- NOTE | 2019-11-04 07:29 | W.PM.HP.N ---
Date of service: 11/04/19 Time of Service: 09:01 Assessment and Plan Assessment and plan (1) Right distal ureteral calculus: Status: Acute Assessment and plan: We will move ahead with cystoscopy, right retrograde pyelogram, right ureteroscopy and possible holmium laser lithotripsy of her ureteral stone History of Present Illness History of Present Illness Chief Complaint: Right Ureteral stone Narrative: This is a 59-year-old woman who is referred by the emergency room providers after she presented to the emergency department with right flank pain. She was evaluated with a noncontrast CT scan. She was found to have a right distal ureteral stone. This is the second episode of renal colic for the patient. The prior episode was 2 to 3 weeks ago. At that time, she mostly noticed bladder spasms and she passed a small stone fragment. This time, she developed severe flank and abdominal pain which necessitated a trip to the emergency room. She required large amounts of analgesics and her pain only improved after the use of ketamine. Her severe pain has improved, but she now has urinary frequency and urgency as well and has some groin discomfort. Her voided volumes are quite small. She has not noticed any discoloration of the urine. She has no known metabolic abnormalities associated with stones. Specifically, she has no history of hyperparathyroid disease or gout. Review of Systems Narrative: No fevers or chills No vision change or dysphasia No diabetes or thyroid No shortness of breath, cough or hemoptysis No chest pain or palpitations. Hx HTN No nausea, vomiting, hepatitis, ulcers, jaundice, diarrhea or constipation No seizures, strokes or peripheral neuropathy No bleeding disorders or anemia No gout PFSH Family History (Updated 07/16/19 @ 10:27 by Germán Parada) Mother Essential hypertension Breast cancer Uterine cancer Father , age 76 Diabetes Essential hypertension Heart disease Hyperlipidemia Skin cancer Sister Diabetes Essential hypertension Hyperlipidemia Maternal Grandfather No problems noted. Paternal Grandfather , age 66 Essential hypertension Heart disease Hyperlipidemia Maternal Grandmother , AGE 82 Diabetes Essential hypertension Heart disease COPD (chronic obstructive pulmonary disease) Paternal Grandmother , age 73 Kidney failure Sister Essential hypertension Son Alcohol abuse Essential hypertension Daughter No problems noted. Daughter No problems noted. Brother Alcohol abuse Stroke Social History (Updated 07/16/19 @ 10:24 by Germán Parada) Smoking/Tobacco Use Status: Never Alcohol Intake: current Alcohol Intake frequency: holidays/special occasions only Drug use: Never Substance use type: does not use Caregiver/Support person: No Household members: none Housing: house Communication Needs: None Do you need help understanding health information?: Never Pets and animals: Yes Pets and animals: dog(s) Sexually active: Yes Do you think of yourself as: straight/heterosexual Current gender identity: female What is your relationship status?: How often do you talk on the phone with friends or family?: decline to answer How often do you get together with friends or relatives?: decline to answer How often do you attend protestant or bahai services?: decline to answer Do you belong to any clubs or organized social groups?: no Panel score (0-1 are the most socially isolated patients): 0 What type of physical activity do you participate in: decline to answer Duration: decline to answer Frequency: decline to answer Roslyn/Anglican: Pentecostalism Special roslyn needs: No Seatbelt use: always Helmet use: No Drive intox or ride w/intox taxi truck driver: No Do you feel safe at home: Yes Do you feel safe in your relationship?: Yes Meds Home Medications and Allergies Home Medications Medication Instructions Recorded Confirmed Type calcium carbonate-vitamin D3 1 tab PO HS 10/16/12 11/04/19 History [Caltrate with Vitamin D3] Excedrin Migraine 1 tab PO PRN PRN 05/25/15 11/04/19 History albuterol sulfate 90 mcg/actuation 2 puff IH Q6H PRN #18 gm 07/15/19 11/04/19 Rx aerosol inhaler doxazosin 8 mg PO HS 10/31/19 11/04/19 History esomeprazole magnesium [Heartburn 20 mg PO HS 10/31/19 11/04/19 History Treatment] metoprolol succinate 100 mg PO HS 10/31/19 11/04/19 History Allergies Allergy/AdvReac Type Severity Reaction Status Date / Time sumatriptan Allergy Severe CAN'T Unverified 11/04/19 07:22 BREATHE amlodipine AdvReac Intermediate edema Unverified 11/04/19 07:22 hydrochlorothiazide AdvReac Intermediate rash Unverified 11/04/19 07:22 [From Hyzaar] losartan potassium AdvReac Intermediate rash Unverified 11/04/19 07:22 [From Hyzaar] codeine AdvReac Mild RASH Unverified 11/04/19 07:22 lisinopril AdvReac Cough Unverified 11/04/19 07:22 Exam Const General: cooperative, comfortable and no acute distress Neck Neck: supple Resp Effort & Inspection: normal respiratory effort Auscultation: clear to auscultation bilaterally Cardio Rate: regular rate Rhythm: regular rhythm GI Palpation: soft, no guarding and no masses Extrem General: no edema COVID-19 Screening Traveled to [place] from one of the affected countries or regions?: NO Medical treatment received for symptoms/illness related to travel?: Preop Covid testing done and negative
--- NOTE | 2019-11-04 07:30 | DI.RAD_ITS ---
EXAM: XR RETROGRADE IN OR INDICATION: Right distal ureteral calculus. COMPARISON: No exams were available for comparison TECHNIQUE: 2D digital imaging was performed. FINDINGS: C-arm fluoroscopy was utilized by Dr. Adamson during retrograde ureterography. Hard copy shows an ap parent calculus in the distal ureter and shows cannulation of the distal ureter. Please see Dr. Joe hdz's procedure note. Fluoroscopy time, 29 seconds. DATA REPOSITORY: RADIATION DOSE DELIVERED:
[2019-11-04] MEDS: Lactated Ringers 1,000 ML 80 ML IV (07:55)
[2019-11-04] MEDS: ceFAZolin 1 GM/50 ML BAG IVPB (09:42)
[2019-11-04] MEDS: Lidocaine 2% Jelly 6 ML SYR (10:00)
[2019-11-04] MEDS: Omnipaque 300 MG/ML 50 ML BTL (10:02)
--- NOTE | 2019-11-04 10:23 | W.PM.DSUDISC ---
Discharge Plan Disposition Patient Disposition: HOME Condition: Stable Discharge Details Reason For Visit: (R) URETERAL STONE Attending Provider: Corky Aguiar Primary Care Provider: Rois De Leon Home Meds and New Rx's Prescriptions: New ketorolac 10 mg tablet 10 mg PO TID PRN (Reason: pain) Qty: 10 RF: 0 No Action albuterol sulfate 90 mcg/actuation HFA aerosol inhaler 2 puff IH Q6H PRN (Reason: bronchospasm) Qty: 18 RF: 4 calcium carbonate-vitamin D3 [Caltrate with Vitamin D3] 1 EACH tablet 1 tab PO HS RF: 0 Excedrin Migraine 1 EACH tablet 1 tab PO PRN PRNRF: 0 metoprolol succinate 100 mg tablet extended release 24 hr 100 mg PO HS RF: 0 doxazosin 8 mg tablet 8 mg PO HS RF: 0 esomeprazole magnesium [Heartburn Treatment] 20 mg capsule,delayed release(DR/EC) 20 mg PO HS RF: 0 Discharge Instructions Additional Instructions: No need to strain urine F/U with me @ 6 weeks with renal US on day of appt May return to work 11/05/2019 if pain is well controlled Activity:: Activity as Tolerated Shower/Bathe:: 24 hours Diet:: As Tolerated Discharge Orders Discharge Orders: Discharge Order (Routine); Ordered 11/04/19 Ordered By: Corky Aguiar DS: Diagnosis Discharge Diagnosis (1) Right distal ureteral calculus: Status: Acute
--- NOTE | 2019-11-04 10:42 | W.PM.OP ---
Date of service: 11/04/19 Time of Service: 10:42 Operative Note Operative Note DATE OF PROCEDURE: 11/04/19 PRE-OP DIAGNOSIS: Right Ureteral Stone POST-OP DIAGNOSIS: same PROCEDURE: Cystoscopy, Right retrograde pyelogram, Right ureteral dilation, Right ureteroscopy with stone extraction SURGEON: Corky Aguiar ANESTHESIA: other (General) ESTIMATED BLOOD LOSS: 0 PATHOLOGY: other (stone for chemical analysis) COMPLICATIONS: None Patient was transported to: PACU Indications: This is a 59-year-old woman who presented to the emergency room with right flank pain. She was identified as having a right distal ureteral stone. Her stone has not passed in spite of conservative management. She presents for stone manipulation. Findings: Right distal ureteral stone Procedure Description: Patient was brought to the operating room on 11/04/2019. She was given preoperative IV antibiotic After being given general anesthesia, she is placed in the dorsal lithotomy position. Her genitalia is prepped and draped. 2% Xylocaine jelly was instilled into the urethra. A 22 Beninese rigid cystoscope was passed through the urethra into the bladder. The bladder was inspected with a 30 degree lens. The base of the bladder had descended somewhat consistent with a cystocele. No masses or stones were seen within the bladder. Both ureteral orifices were identified and appeared normal. A 6 Beninese access catheter was then passed through the cystoscope and maneuvered into the right ureteral orifice. A retrograde film was obtained by injecting Omnipaque through the access catheter under fluoroscopic guidance. A filling defect was outlined in the distal ureter. The location of the filling defect coincided with the location of the stone on CT scan. We then passed a Glidewire through the access catheter and maneuvered the wire above the level of the stone up to the renal pelvis. The access catheter was removed leaving the wire in place. I then attempted to pass a semirigid ureteroscope through the urethra and into the right ureteral orifice. I was unable to maneuver into the orifice, so we decided to dilate the orifice using a 4 cm UroMax balloon. After dilating the orifice I was able to run the scope then quite easily. In the distal ureter, there was a yellowish stone identified. It did not appear to be embedded in the lining of the ureter, so I elected to grasp the stone and a Leny stone basket and remove the stone. We removed the stone in fragments and sent the extracted stones to the lab for chemical analysis. I passed the ureteroscope back up 1 more time and identified no residual fragments. I saw no evidence of ureteral injury, so we elected not to place a ureteral stent. The patient tolerated the procedure well with no complications and no appreciable blood loss.
[2019-11-04] MEDS: Phenazopyridine 200 MG TAB PO (10:53)
[2019-11-04] MEDS: HYDROmorphone 2 MG TAB 4 MG PO (11:49)
[2019-11-04] MEDS: Tamsulosin 0.4 MG CAPCR PO (11:52)
[2019-11-04] MEDS: HYDROmorphone 2 MG/ML VIAL IVP (13:45)
[2019-11-04] MEDS: Droperidol 5 MG/2 ML VIAL 0.625 MG IVP (13:45)
--- NOTE | 2019-11-04 16:17 | NUR.NOTE ---
1550: This nurse called pt's spouse's phone and pt's house phone and left message for pt. to call [facility] in AM to discuss how to retrieve work note, since personal email is not encrypted to transmit medical information.
[2019-11-07 09:38] LABS: Source: Right Ureter
== END 2019-11-04 15:45 | disposition home or self-care (01) ==
PROVIDERS: PCP Family Medicine; Visit Provider Urology
PROC: (CPT 52352; principal; 2019-11-04 09:00)
DX: N20.1 Calculus of ureter (principal); Z87.442 Personal history of urinary calculi; I10 Essential (primary) hypertension; K21.9 Gastro-esophageal reflux disease without esophagitis
CPT/HCPCS: 52352; 52344; NC; 74420; 82365; J0690; J1100; J1790; J1885; J2250; J2405; J2704; Q9967

== ENCOUNTER 2019-11-07 09:40 | Outpatient (REF) | payer OTHER, SELFPAY | END 2019-11-07 10:00 | LOC: LBN 09:40 | PROVIDERS: PCP Family Medicine; Visit Provider Nurse Practitioner Gerontology | DX: R10.32 Left lower quadrant pain (principal) | CPT/HCPCS: 87086 ==

== ENCOUNTER 2019-12-20 03:54 | Outpatient (CLI) | payer OTHER, SELFPAY ==
--- NOTE | 2019-12-20 14:00 | DI.US_ITS ---
EXAM: US RENAL CLINICAL HISTORY: r/o hydronephrosis after ureteroscopy N20.1 CALCULUS OF URETER TECHNIQUE: Ultrasound performed using standard protocol. COMPARISON: US US ABDOMEN from 03/07/2019 FINDINGS: Renal ultrasound was performed according to the usual protocol. The kidneys are normal in size and s hape. There is an 8 millimeter nonobstructing right lower pole renal calculus. No renal calculi identified on left. There is a 29 millimeter in diameter simple cyst of the left renal midpole. Urinary bladder is unremarkable in appearance with pre and postvoid urinary bladder volume measuremen ts 140 cc and 0 cc respectively. There are ureteral jets noted bilaterally. IMPRESSION: 8 millimeter nonobstructing right lower pole renal calculus. No evidence of hydronephrosis. Incidental 3 cm left renal simple cyst also noted. DATA REPOSITORY:
== END 2019-12-20 04:14 ==
PROVIDERS: PCP Family Medicine; Visit Provider Urology
DX: N20.1 Calculus of ureter (principal); N28.1 Cyst of kidney, acquired
CPT/HCPCS: 76770

== ENCOUNTER 2020-01-21 00:32 | Outpatient (CLI) | payer OTHER, SELFPAY ==
--- NOTE | 2020-01-21 | DI.US_ITS ---
APPROVED REPORT EXAM: Comprehensive 2D, Doppler, and color-flow Echocardiogram Patient Location: Out-Patient Programmer Analyst: Peggy Shell RDCS (AE) Indications: Chest tightness, Chest pain, Cardiomegaly Other Information Study Quality: Good Conclusion Normal left ventricular wall thickness and chamber size. Estimated ejection fraction is 55 to 60%. There are no segmental wall motion abnormalities Normal right ventricular size and systolic function Both atria are normal in size Structurally normal aortic valve without regurgitation or stenosis Structurally normal mitral valve. Mild to moderate mitral regurgitation Structurally normal tricuspid valve. Mild tricuspid regurgitation Structurally normal pulmonic valve with trivial regurgitation Mildly dilated ascending aorta measuring 3.34 cm Wall motion Left Ventricle The left ventricle is normal size. The left ventricular systolic function is normal. The left ventric ular ejection fraction is within the normal range. There is normal left ventricular wall thickness. T here is normal LV segmental wall motion. There is no ventricular septal defect visualized. LVEF is 55 %-60%. Right Ventricle The right ventricle is normal size. The right ventricular systolic function is normal. The RVSP is 33 .5 mmHg. Atria The left atrium size is normal. The right atrium size is normal. The interatrial septum is intact wit h no evidence for an atrial septal defect. Aortic Valve Aortic valve is trileaflet. There is no aortic valvular stenosis. No aortic regurgitation is present. Mitral Valve Mild mitral annular calcification. No evidence of mitral valve stenosis. Mild to moderate mitral regu rgitation. Tricuspid Valve The tricuspid valve is normal in structure. There is no tricuspid valve stenosis. Mild tricuspid regu rgitation. Pulmonic Valve The pulmonary valve is normal in structure. There is no pulmonic valvular stenosis. Trivial pulmonic regurgitation. Great Vessels The aortic root is normal in size. The ascending aorta is mildly dilated.3.34 cm Aortic arch is amanda l in caliber. IVC is normal in size and collapses >50% with inspiration. Pericardium There is no pericardial effusion. 2D Dimensions IVSD d PLAX 0.92 cm F: 0.6-1.0 LV Vol A2C d MOD 70.6 mL LVPW d PLAX 0.95 cm F: 0.6 - 1.0 LV Vol A4C d MOD 100.5 mL LVID d PLAX 4.86 cm F: 3.8 - 5.2 LA vol/ BSA A2C s A-L 21.4 mL/m2 LVDs 3.45 cm F: 2.2 - 3.5 LA vol/ BSA A4C s A-L 29.2 mL/m2 Ao Root d 2.62 cm F: 2.7 - 3.3 LA Vol/ BSA Biplane s A-L 25.9 mL/m2 RA Area A4C 15.11 cm2 LA Area A4C s MOD 18.72 cm2 RA Vol/ BSA A4C s A-L 20.1 mL/m2 LA Area A2C s MOD 15.49 cm2 Ao Asc Diam d 3.34 cm F: 2.3 - 3.1 LV EF A4C MOD 52.7 % LV EF Teichholz 54.9 % LV EF A2C MOD 55.3 % LVEF (Jeff's) 53.15 % F: 54 - 74 LV EF Biplane MOD 53.1 % LV Volume 65.69 mL F: 46 - 106 SV 45.42 mL LV Volume Index 35.31 mL/m2 F: 29 - 61 SV Index 24.41 mL/m2 LV Vol Biplane MOD 85.5 mL FS 28.50 % M-Mode TAPSE 2.19 cm (M/F) >1.7 LV Diastology MV E' medial 0.133 (>0.07 m/s) E/A Ratio 1.3 LV E/e MED 6.10 (<14) MV E Vmax 0.82 (0.4-1.3 m/s) MV E' lateral 0.079 (>0.1 m/s) MV A Vmax 0.65 (0.4-1.3 m/s) LV E/e LAT 10.30 (<14) MV E/A Ratio 1.23 MV E/E' medial 6.14 MV E/E' lateral 10.32 Aortic Valve LVOT Area 2.84 cm2 AoV Area Vmax 2.29 cm2 LVOT Vmax 1.03 m/s AoV Area/ BSA (Vmax) 1.23 cm2/m2 LVOT Mean Cortez. 0.65 m/s PHILIP Mean Cortez. 2.07 cm2 LVOT Peak Grad 4.2 mmHg PHILIP Mean Cortez. Index 1.11 cm2/m2 LVOT Mean Grad 2.0 mmHg LVOT VTI 0.263 m LVOT Diam s 1.90 cm AoV Vmax 1.28 m/s Velocity Ratio 0.80 AoV Mean Cortez. 0.90 m/s AoV Peak Grad 6.5 mmHg LVOT SV 74.76 mL AoV Mean Grad 3.5 mmHg AoV VTI 0.312 m AoV Area VTI 2.40 cm2 AoV Area/ BSA (VTI) 1.29 cm/m2 Mitral Valve MV DT 177 (160-240 msec) MR Vmax 4.99 m/s MV PHT 51 msec MR VTI 1.973 m MV Area PHT 4.29 cm2 MR Peak Grad 99.5 mmHg MV VTI 0.266 m MR Mean Grad 69.2 mmHg MV Area VTI 2.81 (4.0-6.0 cm2) MR PISA Radius 0.40 cm MR EROA 0.07 cm2 MR Aliasing Velocity 0.35 m/s MR PISA 1.02 cm2 Pulmonary Valve PV Vmax 0.95 (0.5-1.5 m/s) RVOT Peak Gr. 2.19 mmHg PV Peak Grad 3.6 mmHg RVOT Mean Gr. 1.15 mmHg PV Mean Grad 1.8 mmHg RVOT VTI 0.169 m PV VTI 0.232 m RVOT Vmax 0.74 m/s Tricuspid Valve TR Peak Grad 30.5 mmHg TR Vmax 2.76 m/s RA Pressure 3.00 mmHg RVSP (TR) 33.5 mmHg
--- NOTE | 2020-01-21 08:00 | ETT_ITS ---
APPROVED REPORT Exam: Exercise Treadmill Patient Location: Out-Patient Room/Bed: BMI: 36.46 Baseline Rhythm: Sinus Rhythm Indications: Cardiomyopathy, Chest Pain, Hypertension Medical History Medical History: Cardiomyopathy, HTN, Obesity Cardiac Medications: Metoprolol Allergies: Sumatriptan Intolerant of: amlodipine, hydrochlorothiazide, losartan, codeine, lisinopril Cardiac Risk Factors: HTN, Asthma Pretest Chest Pain Characteristics: No chest pain Exercise History: Sedentary Lung Sounds: Clear to auscultation Heart Sounds: Regular Stress Test Details Test: Exercise stress testing was performed using a Robson protocol. Rest Stress HR Resting HR Supine: 64 bpm Max Heart Rate (APMHR): 159 bpm Resting HR Standin bpm Target HR (85% APMHR): 135 bpm Max HR Achieved: 140 bpm % of APMHR: 88 Recovery HR: 71 bpm HR response to stress: Accelerated HR response to stress BP Resting BP Supine: 172/92 mmHg Resting BP Standin/94 mmHg Max BP: 202/80 mmHg Recovery BP: 188/86 mmHg BP response to stress: Abnormal hypertensive response to stress. ECG Resting ECG: Sinus Rhythm Ectopy: apc Stress ECG: Sinus Tachycardia ST Change: Upsloping ST depression Arrhythmia: APC's Recovery ECG: Sinus Rhythm Recovery ST Change: Horizontal ST depression, Upsloping ST depression, Horizontal ST depression, Recovery Arrhythmia: None Clinical Reason for Termination: Target HR Achieved Stress Symptoms: General Fatigue, Chest pain Exercise duration: 7 min0 sec Highest Stage Reached: Stage 3: 3.4 mph at 14% grade. Exercise capacity: 8.61 METs Functional Capacity: Average Capacity Stress ECG Conclusion 1. Resting electrocardiogram was normal 2. Patient exercised on the Robson protocol and completed a workload of 8.61 METS and achieved 88% of predicted heart rate for age 3. Accelerated heart rate response to exercise 4. Resting hypertension. Normal blood pressure response to exercise 5. Electrocardiographically negative for myocardial ischemia 6. No significant dysrhythmias 7. Childs treadmill score is 7 which is low risk Critical Notification Critical Value: No
== END 2020-01-21 00:52 ==
PROVIDERS: PCP Family Medicine; Visit Provider Family Medicine
DX: R07.89 Other chest pain; I10 Essential (primary) hypertension; J45.909 Unspecified asthma, uncomplicated; I42.9 Cardiomyopathy, unspecified
CPT/HCPCS: 93017; 93306

== ENCOUNTER 2020-02-24 13:05 | Outpatient (REF) | payer OTHER, SELFPAY ==
[2020-02-24 14:01] LABS: HCT 46.1 % (36.0-46.0); HGB 14.5 g/dL (11.2-15.7); MCH 28.5 pg (27.0-33.0); MCHC 31.5 % (32.0-36.0); MCV 90.7 fL (80-95); MPV 11.1 fL (8.0-11.0); Platelet Count 295 10^3/uL (130-400); RBC 5.08 10^6/uL (3.93-5.22); RDW 12.7 % (11.7-14.6); RDW-SD 42.1 fL; WBC 5.87 10^3/uL (4.4-10.8)
[2020-02-24 14:14] LABS: ALT 31 U/L (14-59); AST 18 U/L (15-37); Albumin 3.7 g/dL (3.4-5.0); Alkaline Phosphatase 93 U/L (46-116); Anion Gap 4.3 mmol/L (3-11); BUN 13 mg/dL (7-18); CO2 30.7 mmol/L (21.0-32.0); CREATININE 0.77 mg/dL (0.55-1.02); Calcium 9.1 mg/dL (8.5-10.1); Chloride 107 mmol/L (98-107); Glucose 105 mg/dL (74-106); Potassium 4.2 mmol/L (3.5-5.1); Sodium 142 mmol/L (136-145); TSH (W/Ref FT4) 2.21 uIU/mL (0.36-3.74); Total Protein 6.8 g/dL (6.4-8.2); Vitamin B12 248 pg/mL (193-986)
[2020-02-24 14:19] LABS: Hemoglobin A1C 5.6 % (<5.7)
[2020-02-24 18:22] LABS: Iron 59 ug/dL (50-170)
[2020-02-24 18:36] LABS: Ferritin 117 ng/mL (8-252)
== END 2020-02-24 13:25 ==
LOC: LBN 13:05
PROVIDERS: PCP Family Medicine; Visit Provider Family Medicine
DX: E11.9 Type 2 diabetes mellitus without complications (principal); R71.8 Other abnormality of red blood cells; G62.9 Polyneuropathy, unspecified
CPT/HCPCS: 80053; 85027; 82607; 82728; 83036; 83540; 84443

== ENCOUNTER 2021-01-18 02:24 | Outpatient (CLI) | payer OTHER, SELFPAY ==
[2021-01-18 07:58] LABS: HCT 42.6 % (36.0-46.0); HGB 13.4 g/dL (11.2-15.7); MCH 28.5 pg (27.0-33.0); MCHC 31.5 % (32.0-36.0); MCV 90.6 fL (80-95); MPV 9.7 fL (8.0-11.0); Platelet Count 273 10^3/uL (130-400); RDW 12.9 % (11.7-14.6); RDW-SD 43.3 fL; WBC 5.07 10^3/uL (4.4-10.8)
[2021-01-18 09:01] LABS: ALT 23 U/L (14-59); AST 17 U/L (15-37); Albumin 3.7 g/dL (3.4-5.0); Alkaline Phosphatase 95 U/L (46-116); Anion Gap 6.9 mmol/L (3-11); BUN 16 mg/dL (7-18); Bilirubin, Total 0.7 mg/dL (0.2-1.0); CO2 31.1 mmol/L (21.0-32.0); CREATININE 0.8 mg/dL (0.55-1.02); Calcium 9.2 mg/dL (8.5-10.1); Calculated LDL 152 mg/dL (<100); Chloride 106 mmol/L (98-107); Cholesterol 218 mg/dL (<200); Glucose 103 mg/dL (74-106); HDL Cholesterol 52 mg/dL (40-60); Potassium 4.6 mmol/L (3.5-5.1); Sodium 144 mmol/L (136-145); Total Protein 6.7 g/dL (6.4-8.2); Triglyceride 74 mg/dL (<150)
== END 2021-01-18 02:25 | disposition home or self-care (01) ==
LOC: LBO 02:25
PROVIDERS: PCP Family Medicine; Visit Provider Family Medicine
DX: I10 Essential (primary) hypertension (principal); R51.9 Headache, unspecified
CPT/HCPCS: 36415; 80053; 80061; 85027; 84443

== ENCOUNTER → 2022-01-13 00:45 | Outpatient (CLI) | payer OTHER, SELFPAY ==
--- NOTE | 2022-01-13 | DI.MAMMO_ITS ---
Exam(s) MAMMO DIAGNOSTIC BI EXAM: MAMMO DIAGNOSTIC BI CLINICAL HISTORY: LT BREAST MIKA, N64.4,FAMILY H/O BREAST CA,ZU80.3. TECHNIQUE: Both CC and MLO views of both breasts/mammographic images were obtained with 3D tomosynth esis technique and utilizing computer aided detection (CAD). COMPARISON: Prior mammograms were reviewed, the most recent being July 2019. Apparently this 6 series 1-year-old patient has been having left breast pain for 1 year. FINDINGS: There are no CAD designations. Asymmetric density in the left breast on CC view located 8 cm in from the nipple, slightly medial of center is unchanged from recent mammograms. Also unchanged is a small benign-appearing nodule inferi chandan in the left breast which has appearance of benign lymph node.. There are no malignant-appearing microcalcification groups in either breast. No new architectural di stortion or skin thickening-traction. IMPRESSION: No radiographic evidence of malignancy However, given the history of left breast pain I recommend follow-up complete breast ultrasound BI-RADS Category 0 - Assessment Incomplete: Need additional imaging evaluation Breast Density - Category B - Scattered areas of fibroglandular density Breast density Category C or D implies that the patient has dense breast tissue. Dense breast tissue can make it harder to find cancer on a mammogram. Dense breast tissue is also associated with an incr eased risk of breast cancer. This information about the result of the mammogram report was provided to the patient to raise their awareness. Use this report when you speak with the patient about their risks for breast cancer, which includes their family history. At that time, you may recommend additional screening tests (Ultrasoun d or MRI) as these tests may add significant information. A negative radiographic report should not delay biopsy if a dominant or clinically suspicious mass is present. Up to ten percent of cancers are not identified on mammography. A negative report may reinforce clinical impression. Adenosis and dense breasts may obscure an underlying neoplasm. False positive reports average 6 to 10%. Patient will receive a letter notifying them of these results.
--- OUTSIDE RECORDS SUMMARY | 2022-01-13 00:49 | XMS_ITS | Encounter Summary ---
:1960 Author Organization [facility] Address [address] [place] [address] Care Team Providers Name Role Phone Unavailable Primary Care Provider Unavailable Encounter Details Date Type Department Care Team Description 03/23/2009 Orders Only [facility] Karen De Leon MD Laboratory Services - [facility] [address] [address] [place] [address] [phone] Social History Tobacco Use Types Packs/Day Years Used Date Never Assessed Sex Assigned at Date Recorded Not on file documented as of this encounter Plan of Treatment Not on filedocumented as of this encounter Procedures Procedure Name Priority Date/Time Associated Comments Diagnosis HPV DETECTION, HIGH Routine 03/23/2009 17:25 Resu lts for this RISK TYPES EDT procedure are i n the results section. CYTOPATHOLOGY Routine 03/23/2009 0:00 Results for this EDT procedure are i n the results section. documented in this encounter Results HUMAN PAPILLOMA VIRUS DNA TEST (03/23/2009 17:25 EDT) Specimen Description Cervix, ThinPrep [facility] vial Result Negative for HPV [facility] types 16, 18, 31, 33, 35, 39, 45, 51, 52, 56, 58, 59, and 68. Report Status Final [facility] 04/02/2009 Specimen Performing Organization Address City/State/ZIP Code Phon e Number [facility] [address] [place] [address] SERVICES [facility] [address] [place] [address] CYTOPATHOLOGY (03/23/2009 0:00 EDT) Pathology Report: CYTOPATHOLOGY REPORT ? [facility] ? LAB Reports generated via electr 4vets interface contain original data; ? however they are lacking the format of the original report. ? Caution should be taken when reading/interpreting unformatted reports. ? Name: ? GIANNA SUMMERS ? Accession #: ? [id number] ? : ? 1960 (Age: 49) ??F ?Collect Date: ? 03/23/2009 ? Location: ? [facility] ? Receive Date: ? 03/23/2009 ? Provider: ?BAILEE M DO BBERTIN MD ? Copy to: ? Specimen/Source: ? Pap Test, Cervix/Endocervix, ThinPrep Imaging System ? with manual evaluation ? Last Menstrual Period: ? Menstrual/ Status: ? Post Menopausal ? Previous Gynecologic Patholo gy: ? Yes: H/O abnormal pap ? Other: ? HPVDX - HPV testing requeste d regardless of diagnosis on current ThinPrep Pap ?? test. ? SPECIMEN ADEQUACY ? Satisfactory for Eval uation ? - transformation zone compon ent present ? GENERAL CATEGORIZATION ? Negative for Intraepi thelial Lesion or Malignancy ? Document reviewed and electr onically signed by: ? Cyndy Dias, CT(ASCP) ? Report Date: ??10/02/ 2009 11:17 ? End of Report ? Specimen Performing Organization Address City/State/ZIP Code Phon e Number [facility] [address] [place] [phone] SERVICES [facility] [address] [phone] documented in this encounter Visit Diagnoses Not on filedocumented in this encounter
--- OUTSIDE RECORDS SUMMARY | 2022-01-13 00:49 | XMS_ITS | Encounter Summary ---
:1960 Author Organization [facility] Address [address] [place] [address] Care Team Providers Name Role Phone Unavailable Primary Care Provider Unavailable Encounter Details Date Type Department Care Team Description 04/19/2004 Results Only [facility] - Maribel Davila MD conversion [address] [place] [address] Social History Tobacco Use Types Packs/Day Years Used Date Never Assessed Sex Assigned at Date Recorded Not on file documented as of this encounter Plan of Treatment Not on filedocumented as of this encounter Procedures Procedure Name Priority Date/Time Associated Diagnosis Comme nts CYTOPATHOLOGY Routine 04/19/2004 0:00 EDT Results for this procedure are i n the results section . documented in this encounter Results CYTOPATHOLOGY (04/19/2004 0:00 EDT) Pathology Report: CYTOPATHOLOGY REPORT [facility] Reports generated via electronic interface contain marisela ginal data; however they are lacking the format of the original re port. Caution should be taken when reading/interpreting unfo rmatted reports. Name: ? MARIELLE SUMMERS ? Accession #: ? [id number] : ? 1960 (Age: 44) ??F ?Collect Date: ? 03/27 Location: ? [facility] ? Receive Date : ? 04/21/2004 Provider: ?MARIBEL ARIAS MD Copy to: ? Specimen/Source: ?ThinPrep Pap Test, Cervix/ Endocervix Last Menstrual Period: ? 04/11/04 Menstrual/ Status: ? Menorrhagia ? SPECIMEN ADEQUACY ? Satisfactory for Evaluation - transformation zone component present GENERAL CATEGORIZATION ? Other, see interpretation INTERPRETATION ? Endometrial cells present in a woman equal to o r greater than age 40. Negative for Intraepithelial Lesion or Malignancy. Reactive cellular changes associated with inflammation present (includes repair). EDUCATIONAL NOTES/RECOMMENDATIONS ? Benign appearing endometrial cells on Pap tests are usually a normal finding in women with regular menstrual cycles, especially if the Pap test was collected during the first half of the menstrual cycle . There is data showing that e ndometrial cells on Pap tests may be associated with endometrial/uterine abnormal ities in post menopausal women or in perimenopausal women with abnormal bleeding. There is limited data on the significance of steven ign endometrial cells in post menopausal women on HRT. ??Clinical correlation is rec ommended. Note: ??The Pap test is not an accurate test for the screening of endometrial lesions and should not be used as a follow up in patie nts with clinical suspicion of endometrial pathology. ? Document reviewed and electronically signed by: ? RU DAVALOS MD ? Report Date: ??05/03/2004 15:52 End of Report Specimen Performing Organization Address City/State/ZIP Code Phon e Number [facility] [address] [phone] SERVICES [facility] [address] [place] [address] documented in this encounter Visit Diagnoses Not on filedocumented in this encounter
--- OUTSIDE RECORDS SUMMARY | 2022-01-13 00:49 | XMS_ITS | Encounter Summary ---
:1960 Author Organization [facility] Address [address] [place] [address] Care Team Providers Name Role Phone Unavailable Primary Care Provider Unavailable Encounter Details Date Type Department Care Team Description 02/12/2007 Results Only [facility] - Maribel Davila MD conversion [address] [place] [address] Social History Tobacco Use Types Packs/Day Years Used Date Never Assessed Sex Assigned at Date Recorded Not on file documented as of this encounter Plan of Treatment Not on filedocumented as of this encounter Procedures Procedure Name Priority Date/Time Associated Diagnosis Comme nts CYTOPATHOLOGY Routine 02/12/2007 0:00 EDT Results for this procedure are i n the results section . documented in this encounter Results CYTOPATHOLOGY (02/12/2007 0:00 EDT) Pathology Report: CYTOPATHOLOGY REPORT [facility] Reports generated via electronic interface contain marisela ginal data; however they are lacking the format of the original re port. Caution should be taken when reading/interpreting unfo rmatted reports. Name: ? MARIELLE SUMMERS ? Accession #: ? [id number] : ? 1960 (Age: 46) ??F ?Collect Date: ? 01/25 Location: ? [facility] ? Receive Date : ? 02/13/2007 Provider: ?MARIBEL ARIAS MD Copy to: ? Specimen/Source: ? ThinPrep Pap Test, Cervix/Endocervix, processed on Cumulocity ThinPrep Imaging System, with manual evaluation Last Menstrual Period: ? Menstrual/ Status: ? Post Menopausal Other: ? Additional clinical information: Post menopausal bleed ing ? SPECIMEN ADEQUACY ? Satisfactory for Evaluation - transformation zone component present GENERAL CATEGORIZATION ? Negative for Intraepithelial Lesion or Malignan cy ? Document reviewed and electronically signed by: ? BRYNN Brown(ASCP) ? Report Date: ??02/16/2007 16:29 End of Report Specimen Performing Organization Address City/State/ZIP Code Phon e Number [facility] [address] [place] [address] SERVICES [facility] [address] [place] [address] documented in this encounter Visit Diagnoses Not on filedocumented in this encounter
--- OUTSIDE RECORDS SUMMARY | 2022-01-13 00:49 | XMS_ITS | Encounter Summary ---
:1960 Author Organization [facility] Address [address] [place] [address] Care Team Providers Name Role Phone Unavailable Primary Care Provider Unavailable Encounter Details Date Type Department Care Team Description 04/14/2003 Results Only [facility] - Maribel Davila MD conversion [address] [place] [address] Social History Tobacco Use Types Packs/Day Years Used Date Never Assessed Sex Assigned at Date Recorded Not on file documented as of this encounter Plan of Treatment Not on filedocumented as of this encounter Procedures Procedure Name Priority Date/Time Associated Diagnosis Comme nts CYTOPATHOLOGY Routine 04/14/2003 0:00 EDT Results for this procedure are i n the results section . documented in this encounter Results CYTOPATHOLOGY (04/14/2003 0:00 EDT) Pathology Report: CYTOPATHOLOGY REPORT [facility] Reports generated via electronic interface contain marisela ginal data; however they are lacking the format of the original re port. Caution should be taken when reading/interpreting unfo rmatted reports. Name: ? MARIELLE SUMMERS ? Accession #: ? [id number] : ? 1960 (Age: 43) ??F ?Collect Date: ? 03/27 Location: ? [facility] ? Receive Date : ? 04/16/2003 Provider: ?MARIBEL ARIAS MD Copy to: ? Specimen/Source: ?Conventional Pap Test, Cer vix/Endocervix Last Menstrual Period: ? 04/06/03 ? SPECIMEN ADEQUACY ? Satisfactory for Evaluation - transformation zone component present GENERAL CATEGORIZATION ? Other, see interpretation INTERPRETATION ? Endometrial cells present in a woman equal to o r greater than age 40. Negative for Intraepithelial Lesion or Malignancy. Reactive cellular changes associated with inflammation present (includes repair). ? COMMENT ? Benign appearing endometrial cells on Pap tests are usually a normal finding in women with regular menstrual cycles, especially if the Pap was collected during the first half of the menstr ual cycle. ??There is data showing that endometrial cells on Pap tests may be associated wit h endometrial/uterine abnormalities in post menopausal women or in premenopausal women with abnormal bleeding. ??There is limited data on the significance of benign endometr ial cells in post menopausal women on HRT. ??Clinical correlation is rec ommended. Note: ?? The Pap test is not an accurate test for the screening of endometrial lesions and should not be used as a follow up in patie nts with clinical suspicion of endometrial pathology. ? Document reviewed and electronically signed by: ? Anya Mcdaniels MD ? Report Date: ??04/22/2003 17:46 End of Report Specimen Performing Organization Address City/State/ZIP Code Phon e Number [facility] [address] [phone] SERVICES [facility] [address] [place] [address] documented in this encounter Visit Diagnoses Not on filedocumented in this encounter
--- OUTSIDE RECORDS SUMMARY | 2022-01-13 00:49 | XMS_ITS | Encounter Summary ---
:1960 Author Organization [facility] Address [facility] [place] [address] Care Team Providers Name Role Phone Rosi De Leon MD Primary Care Provider Encounter Details Date Type Department Care Team Description 01/25/2011 Anesthesia Event Gastroenterology at [place] Gab Sandovalssica [facility] [place] [address] [facility] [phone] DR ANESTHESIOLOGY DEPT. [place], [place] [address] Anesthesia Record Procedure Summary Procedure Name Responsible Anesthesia Start Anesthesia Stop Anesthesiologist Time Time COLONOSCOPY, Merlene Sandoval MD 01/25/11 0757 01/25/11 0841 DIAGNOSTIC (N/A Trunk) Events Date Time Event Comment 01/25/2011 0751 0757 Start 0841 Stop No medications on file. Agents No agents on file. Blood No blood administrations on file. Lines, Drains, and Airways Type Details Placement Removal PIV 01/25/11; 0735; 01/25/11; 01/25/11 0735 by Martir kamara, 01/25/11 0920 by Kia, 0920 Belle Johnson RN Belle Johnson RN documented in this encounter Social History Tobacco Use Types Packs/Day Years Used Date Never Smoker Alcohol Use Standard Drinks/Week Comments Yes 1 (1 standard drink = 0.6 oz pure alcoho l) 3 - 4 X year Alcohol Habits Answer Date Recorded How often do you have a drink containing alcohol? Not asked How many drinks containing alcohol do you have on a Not aske d typical day when you are drinking? How often do you have six or more drinks on one occasion? No t asked Comment: 3 - 4 X year 01/25/2011 Sex Assigned at Date Recorded Not on file documented as of this encounter OR Notes Anesthesia Postprocedure Evaluation - Merlene Sandoval MD - 01/25/2011 9:18 AM EDT Patient: Marielle Summers Procedure(s) Performed: COLONOSCOPY, DIAGNOSTIC; UPPER GI ENDOSCOPY; COLONOSCOPY FLEXIBLE, WITH BX; EGD WITH BIOPSY Patient location: PACU Post-op pain: Adequate analgesia Post-op nausea: no nausea or vomiting Last Vitals: Filed Vitals: 01/25/11 0841 BP: 116/62 Pulse: 70 Temp: Resp: 16 Post-op cardiovascular and respiratory status: is stable Level of consciousness: awake, alert and oriented Complications: no apparent complications, tolerated the procedure well and no evidence of recall Fluid Status: normal Anesthesia Preprocedure Evaluation - Merlene Sandoval MD - 01/25/2011 7:46 AM EDT Anesthesia Evaluation Patient summary reviewed and Nursing notes reviewed No hx of anesthetic complications Airway TM distance: <3 FB Neck ROM: full Dental - normal exam Pulmonary - normal exam (-) recent URI Cardiovascular Exercise tolerance: good (+) hypertension, (-) past MD, angina and orthopnea Rhythm: regular Rate: normal Neuro/Psych (+) headaches (migraines), GI/Hepatic/Renal (+) hiatal hernia, GERD, bowel prep Endo/Other (-) Type I DM, Type II DM, hypothyroidism and hyperthyroidism Abdominal Anesthesia Plan ASA 2 General with intravenous induction Anesthetic plan and risks discussed with patient. Use of blood products discussed with patient. Plan discussed with CRIME SCENE EXAMINER. documented in this encounter Miscellaneous Notes Addendum Note - Janice Ledesma - 01/26/2011 11:40 AM EDT Addendum created 01/26/11 1140 by Janice Ledesma Modules edited:Anesthesia Events, Anesthesia Responsible Staff documented in this encounter Plan of Treatment Not on filedocumented as of this encounter Visit Diagnoses Not on filedocumented in this encounter Care Teams Dump Attendant Relationship Specialty Start Date End Date Rosi De Leon MD PCP - General 05/18/10 [address] [place] [address] documented as of this encounter
--- OUTSIDE RECORDS SUMMARY | 2022-01-13 00:49 | XMS_ITS | Encounter Summary ---
:1960 Author Organization [facility] Address [facility] [place] [address] Care Team Providers Name Role Phone Rosi De Leon MD Primary Care Provider Encounter Details Date Type Department Care Team Description 01/25/2011 Surgery G[facility]enterology at [facility] Rory Tate, COLONOSCOPY, [facility] [place] [address] [facility] [phone] DR GASTROENTEROLOGY [place] [address] Social History Tobacco Use Types Packs/Day Years [...] on file documented as of this encounter Last Filed Vital Signs Vital Sign Reading Time Taken Comments Blood Pressure 116/62 01/25/2011 8:41 AM EDT Pulse 70 01/25/2011 8:41 AM EDT Temperature 36.4 ??C (97.5 ??F) 01/25/2011 7:12 AM EDT Respiratory Rate 16 01/25/2011 8:41 AM EDT Oxygen Saturation 97% 01/25/2011 8:41 AM EDT Inhaled Oxygen Concentration - - Weight 78.5 kg (173 lb) 01/25/2011 7:12 AM EDT Height 154.9 cm (5' 1) 01/25/2011 7:12 AM EDT Body Mass Index 32.69 01/25/2011 7:12 AM EDT documented in this encounter Discharge Instructions Patient InstructionsRory Taet MD - 01/25/2011 8:41 AM EDT Please see Recommendations in the Provation procedure report which is documented in the procedural note in E-DH. AttachmentsThe following attachments cannot be sent through Care Everywhere. ENDOSCOPIC ULTRASOUND (RECTAL): WHAT TO EXPECT AT HOME (ARMENIAN)UPPER GI ENDOSCOPY: WHAT TO EXPECT AT HOME (ARMENIAN)documented in this encounter Medications at Time of Discharge Medication Sig Dispensed Refills Start Date End Date losartan (COZAAR) 50 mg tablet Take by mouth 0 daily. hydrochlorothiazide Take 12.5 mg by 0 (HYDRODIURIL) 25 mg tablet mouth daily. potassium chloride (KAYCIEL) 10 Take 20 mEq by 0 % solution mouth daily. calcium carbonate 648 mg tablet Take 650 mg by 0 mouth 2 times daily. doxazosin (CARDURA) 2 mg tablet Take 2 mg by 0 mouth nightly. lisinopril (PRINIVIL;ZESTRIL) 10MG, PO, Once 0 10 mg tablet daily Indomethacin (INDOCIN) 50 mg 0 006 suppository CIS Free Text Med - Indocin 0 04/26/20 04 documented as of this encounter H&P Notes Rory Tate MD - 01/25/2011 8:01 AM EDT H&P done prior to procedure and documented in the endoscopy report located in the Procedures tab in eDH. documented in this encounter Miscellaneous Notes Miscellaneous - Provider, Scanning - 01/25/2011 10:21 PM EDT Miscellaneous - Provider, Scanning - 01/25/2011 10:19 PM EDT Miscellaneous - Provider, Scanning - 01/25/2011 11:27 AM EDT OR Attestation - Rory Tate MD - 01/25/2011 8:40 AM EDT As the attending physician, I personally performed the entire procedure. documented in this encounter Plan of Treatment Not on filedocumented as of this encounter Procedures Procedure Name Priority Date/Time Associated Comments Diagnosis SURGICAL PATHOLOGY Routine 01/25/2011 10:25 Resul ts for this REPORT AM EDT procedure are i n the results section. EGD WITH BIOPSY (WRVU 01/25/2011 8:01 AM reflux/incont inence 2.49) EDT /abnormal abd xr ay W/ ANES COLONOSCOPY FLEXIBLE, 01/25/2011 8:01 AM reflux/incont inence WITH BX (WRVU 3.66) EDT /abnormal ab d xray W/ ANES UPPER GI ENDOSCOPY 01/25/2011 8:01 AM reflux/incontine nce EDT /abnormal abd xr ay W/ ANES COLONOSCOPY, 01/25/2011 8:01 AM reflux/incontinence DIAGNOSTIC EDT /abnormal abd xr ay W/ ANES COLONOSCOPY Routine 01/25/2011 7:53 AM Results f or this EDT procedure are i n the results section. UPPER GI ENDOSCOPY Routine 01/25/2011 7:53 AM Res ults for this EDT procedure are i n the results section. documented in this encounter Results SURGICAL PATHOLOGY REPORT (01/25/2011 10:25 AM EDT) [facility] Method Time Signature Surgical CERNER Pathology ? [facility] Report ? Provider: ?? RORY TATE ?Pt. Name: ?? MARIELLE OSEI ? Acc #: ?[id number] ?Pt. MRN: ?[id number] ? Col Date: ?? 01/25/2011 ?/Sex: ?1960,(50 years),Female ? Rec Date: ?? 01/25/2011 ?LOC: ?4T ? SURGICAL PATHOLOGY ? ---Pathologic Diagnosis--- ? A - Colon, random biopsies: ? Colonic mucosa, negative for diagnostic abnorma lity. ? B - Gastric antrum, biopsy: ? Gastric antrum-type mucosa with mild reactive g astropathy. ? CR-0, CR-PX ? 01/27/11 ? VMS ? 01/27/11 Verified by: ? Edgardo AGUAYO, Bird ? Pathologist ? (Electronic Si gnature) ? The attending pathologist whose signature appears o n this report has ? reviewed all diagnostic slides and has edited the kristy ss and/or ? microscopic portion of the report in rendering the fi nal pathologic ? diagnosis. ? ---Microscopic Description--- ? Slides reviewed, microscopic description not recorded . ? ---Gross Description--- ? A - Labeled/Fixative: Random Bx of colon, formalin. ? Qty/Size/Weight: ?Multiple, ranging from 0.1 c m to 0.5 cm in ? greatest dimension. ? Tissue Description: ?? Soft, hernandez tissues. ? Sections/Processing: ??(T3) ? B - Labeled/Fixative: Bx of antrum R/O H. pylori, for lorie. ? Qty/Size/Weight: ?Three, ranging from 0.2 cm t o 0.5 cm in ? greatest dimension. ? Tissue Description: ?? Soft, hernandez tissues. ? Sections/Processing: ??(T1) ??vms/SNS ? ---Clinical Information--- ? Specimen Submitted: ? A - Random Bx colon ? B - Biopsy of antrum R/O H pylori ? Clinical History/Diagnosis: ? Patient with loose stools, duodenal erosions. ??R/O H. pylori. ??R/O ? microscopic colitis Specimen (Source) Anatomical Collection Method Collection Time Re ceived Time Location / / Volume Laterality 01/25/2011 10:25 AM EDT Rory Tate MD PATHOLOGY/CYTOLOGY ORDERABLE S Performing Organization Address City/State/ZIP [facility] [place] [address] CERNER MILLENNIUM COLONOSCOPY (01/25/2011 7:53 AM EDT) [facility] gist Method Time Signature COLONOSCOPY [facility]ATION Endoscopy Patient Name: Marielle Summers ? Procedure Date: 01/25/2011 07:53:44 AM ? N: [id number] ? Date of : 1960 ? Age: 50 ? Procedure: ? Colonoscopy Indications: ? Screening for malignant neoplasm in ? the colon, fecal incontinence Providers: ? Rory Tate MD Referring : ?Rosi De Leon MD Medicines: ? Propofol per Anesthesia Complications: ? No immediate complications Procedure: ? Pre-Anesthesia Assessment: ? - Mental Status Examination: alert ? and oriented. Airway Examinat ion: ? normal oropharyngeal airway a nd neck ? mobility. Respiratory Examina tion: ? clear to auscultation. CV ? Examination: normal. ? - ASA Grade Assessment: I - A normal, ? healthy patient. ? The procedure, indications, b enefits, ? risks and alternatives were e xplained ? to the patient. Specifically ? discussed were potential ? complications including, but not ? limited to, bleeding, perfora tion, ? infection, missing a cancer, and ? adverse medication reactions. The ? patient was placed in the lef t ? lateral decubitus position, a nd a ? digital rectal exam was perfo rmed. ? The Colonoscope was inserted in the ? anus and under direct visuali zation, ? advanced to the terminal ileu m. ? Careful inspection was made a s the ? colonoscope was withdrawn. Th e ? quality of the bowel preparat ion was ? excellent. ? Findings: ? Poor rectal tone on rectal exam.The colon (entire ? examined portion) appeared normal. Biopsies were ? taken with a cold forceps from the entire colon for ? evaluation of microscopic colitis. The terminal ileum ? appeared normal. Internal hemorrhoids were found ? during endoscopy and were small. ? Impression: ?- The entire examined colon is ? normal. This was biopsied. ? - The examined portion of the ileum ? was normal. ? - Internal hemorrhoids. Recommendation: ?- Await pathology results. ? Consider referral to PT for r ectal ? incontinence ? Rory Tate MD Signed Date: 01/25/2011 08:29:02 AM Number of Addenda: 0 ? Note initiated on 01/25/2011 07:53:44 AM Specimen (Source) Anatomical Collection Method Collection Time Re ceived Time Location / / Volume Laterality 01/25/2011 7:53 AM EDT Unknown GENERAL SURGICAL ORDERABLES Performing Organization Address City/State/ZIP Code Phon e Number [facility]ATION UPPER GI ENDOSCOPY (01/25/2011 7:53 AM EDT) [facility] gist Method Time Signature UPPER GI [facility]ATION ENDOSCOPY Endoscopy Patient Name: Marielle Summers ? Procedure Date: 01/25/2011 07:53:20 AM ? N: [id number] ? Date of : 1960 ? Age: 50 ? Procedure: ? Upper GI endoscopy Indications: ? Heartburn, persistant reflux sx Providers: ? Rory Tate MD, Bruna duval, ? RN Referring MD: ?Rosi De Leon MD Medicines: ? Propofol per Anesthesia Complications: ? No immediate complications Procedure: ? Pre-Anesthesia Assessment: ? - Mental Status Examination: alert ? and oriented. Airway Examinat ion: ? normal oropharyngeal airway a nd neck ? mobility. Respiratory Examina tion: ? clear to auscultation. CV ? Examination: normal. ? - ASA Grade Assessment: I - A normal, ? healthy patient. ? The procedure, indications, b enefits, ? risks and alternatives were e xplained ? to the patient. Specifically ? discussed were potential ? complications including, but not ? limited to, bleeding, perfora tion, ? infection, missing a cancer, and ? adverse medication reactions. The ? Endoscope was introduced thro [facility] the ? mouth, and advanced to the ird part ? of duodenum. The patient tole rated ? the procedure well. The upper GI ? endoscopy was accomplished wi out ? difficulty. The patient abi ated the ? procedure well. ? Findings: ? A small hiatus hernia was present. The Z-line was ? regular and was found 38 cm from the incisors. ? There was a single short linear erosion at the distal ? esophagus c/w mild esophagitis. ? There was no Ortiz's esophagusA few non-bleeding ? localized erosions were found in the gastric antrum. ? There were no stigmata of recent bleeding. Biopsies ? were taken with a cold forceps for Helicobacter ? pylori testing. Two localized erosions with no ? bleeding were found in the 3rd part of the duodenum. ? Impression: ?- Hiatus hernia. ? - Z-line regular, 38 cm from the ? incisors. ? - Erosive gastropathy. This w as ? biopsied. ? - Erosive duodenopathy. Recommendation: ?- Await pathology results. ? Rory Tate MD Signed Date: 01/25/2011 08:39:37 AM Number of Addenda: 0 ? Note initiated on 01/25/2011 07:53:20 AM Specimen (Source) Anatomical Collection Method Collection Time Re ceived Time Location / / Volume Laterality 01/25/2011 7:53 AM EDT Unknown GENERAL SURGICAL ORDERABLES Performing Organization Address City/State/ZIP Code Phon e Number PROVATION documented in this encounter Visit Diagnoses Not on filedocumented in this encounter Active and Recently Administered Medications Care Teams Chemical Dependency Nurse Relationship Specialty Start Date End Date Rosi De Leon MD PCP - General 05/18/[address] [address] documented as of this encounter
--- OUTSIDE RECORDS SUMMARY | 2022-01-13 00:49 | XMS_ITS | Encounter Summary ---
:1960 Author Organization [facility] Address [address] [place] [address] Care Team Providers Name Role Phone Unavailable Primary Care Provider Unavailable Encounter Details Date Type Department Care Team Description 01/31/2000 Results Only [facility] - Maribel Davila MD conversion [address] [place] [address] Social History Tobacco Use Types Packs/Day Years Used Date Never Assessed Sex Assigned at Date Recorded Not on file documented as of this encounter Plan of Treatment Not on filedocumented as of this encounter Procedures Procedure Name Priority Date/Time Associated Diagnosis Comme nts CYTOPATHOLOGY Routine 01/31/2000 0:00 EDT Results for this procedure are i n the results section . documented in this encounter Results CYTOPATHOLOGY (01/31/2000 0:00 EDT) Pathology Report: CYTOPATHOLOGY REPORT [facility] Reports generated via electronic interface contain marisela ginal data; however they are lacking the format of the original re port. Caution should be taken when reading/interpreting unfo rmatted reports. Name: ? MARIELLE SUMMERS ? Accession #: ? [id number] : ? 1960 (Age: 39) ??F ?Collect Date: ? 12/1999 Location: ? [facility] ? Receive Date : ? 02/01/2000 Provider: ?MARIBEL ARIAS MD Copy to: ? Specimen/Source: ?Conventional Pap Test, Cer vix/Endocervix Last Menstrual Period: ? 01/14/00 Previous Gynecologic Pathology: ? Yes Other: ? Additional clinical information: NL cycle and exam ? SPECIMEN ADEQUACY ? Satisfactory for evaluation but limited by obsc uring inflammation. GENERAL CATEGORIZATION ? Benign Cellular Changes DESCRIPTIVE DIAGNOSIS ? 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 ? Document reviewed and electronically signed by: ? BRYNN Li(ASCP) ? Report Date: ??02/03/2000 10:47 End of Report Specimen Performing Organization Address City/State/ZIP Code Phon e Number [facility] [address] [place] [address] SERVICES [facility] [address] [place] [address] documented in this encounter Visit Diagnoses Not on filedocumented in this encounter
--- OUTSIDE RECORDS SUMMARY | 2022-01-13 00:49 | XMS_ITS | Encounter Summary ---
:1960 Author Organization [facility] Address [address] [place] [address] Care Team Providers Name Role Phone Unavailable Primary Care Provider Unavailable Encounter Details Date Type Department Care Team Description 04/06/[address] [facility] - Maribel Davila MD conversion [address] [place] [address] Social History Tobacco Use Types Packs/Day Years Used Date Never Assessed Sex Assigned at Date Recorded Not on file documented as of this encounter Plan of Treatment Not on filedocumented as of this encounter Procedures Procedure Name Priority Date/Time Associated Diagnosis Comme nts CYTOPATHOLOGY Routine 04/06/2000 0:00 EDT Results for this procedure are i n the results section. SURGICAL PATHOLOGY Routine 04/06/2000 0:00 EDT Re sults for this procedure are i n the results section. documented in this encounter Results CYTOPATHOLOGY (04/06/2000 0:00 EDT) Pathology Report: CYTOPATHOLOGY REPORT [facility] Reports generated via electronic interface contain marisela ginal data; however they are lacking the format of the original re port. Caution should be taken when reading/interpreting unfo rmatted reports. Name: ? MARIELLE SUMMERS ? Accession #: ? [id number] : ? 1960 (Age: 40) ??F ?Collect Date: ? 03/26 Location: ? [facility] ? Receive Date : ? 04/07/2000 Provider: ? MARIBEL ARIAS MD Copy to: ? CYTOLOGIC DIAGNOSIS: ? Ovarian cyst, left, cytologic material: - No malignant cells identified. ??See comment. ? COMMENT: ? Numerous histiocytes are present. ??(Dr. Mcdaniels )/[facility] Document reviewed and electronically signed by: ? Anya Mcdaniels MD Report Date: ??04/07/2000 18:07 By the signature above, the attending physician certif ies that he/she has personally conducted a gross and/or microscopic examin ation of the described specimens and rendered or confirmed the above diagnosi s. Specimen Type: ? Left Ovarian Cyst, Fine Needle Aspiration Clinical History: ? Left ovarian cyst. ? Gross Description: ? 40cc yellow fluid was received and processed. ? End of Report Specimen Performing Organization Address City/State/ZIP Code Phon e Number [facility] [address] [place] [address] SERVICES [facility] [address] [place] [address] SURGICAL PATHOLOGY (04/06/2000 0:00 EDT) Pathology Report: SURGICAL PATHOLOGY REPORT [facility] Reports generated via electronic interface contain marisela ginal data; LAB however they are lacking the format of the original re port. Caution should be taken when reading/interpreting unfo rmatted reports. Name: ? GIANNA SUMMERS ? Accession #: ? [id number] ? : ? 1960 (Age: 40) ??F ? Collect Date: ? 04/06/2000 ? Location: ? [facility] ? Receive Date: ? 000 ? Provider: MARIBEL ARIAS MD Copy to: BRITNI ARENAS MD ? Final Pathologic Diagnosis: A. ?Endometrium, curettage: 1. ?Proliferati ve endometrium with stromal breakdown and focal tubal metaplasia. B. ?Ovary, cyst, biopsy: 1. ?Serous cyst adenoma. Document reviewed and electronically signed by: REEMA GUNTER MD Report ??Date: 04/11/2000 15:43 By the signature above, the attending physician certif ies that he/she has personally conducted a gross and/or microscopic examin ation of the described specimens and rendered or confirmed the above diagnosi s. Specimen(s) Received: A. ?Endometrial curettings B. ?Left ovarian cyst wall Clinical History: ? L ovarian cyst; menorrhagia Gross Description: ? Received in formalin labelled [place] and endometrial curettings are multiple fragments of dark h emorrhagic mucinous to pale hernandez tissue measuring 1.8 x 1.8 x 1.0 cm in aggregate. ??The specimen is e ntirely submitted as (A1) and (A2). Received in formalin labelled [place] and 1-left ov tarun cyst are two fragments of pale hernandez-pink cyst wall measuring 3 .5 x 3.5 x 3.2 cm. ??The wall thickness is less than 0.1 cm. ??The surface is smooth with no papillary excrescences. ??Senior Engineering Associate sections of the cyst wall are submitted as (B1) through (B3). ??(Dr. Magana)/dem End of Report Specimen Performing Organization Address City/State/ZIP Code Phon e Number [facility] [address] [place] [address] SERVICES [facility] [address] [place] [address] documented in this encounter Visit Diagnoses Not on filedocumented in this encounter
--- OUTSIDE RECORDS SUMMARY | 2022-01-13 00:49 | XMS_ITS | Encounter Summary ---
:1960 Author Organization [facility] Address [address] [place] [address] Care Team Providers Name Role Phone Unknown, Provider Primary Care Provider Encounter Details Date Type Department Care Team Description 05/25/[address] [facility] Rosi Nava MD [phone] [place] [address] (Wo rk) Social History Tobacco Use Types Packs/Day Years Used Date Never Assessed Sex Assigned at Date Recorded Not on file documented as of this encounter Plan of Treatment Not on filedocumented as of this encounter Procedures Procedure Name Priority Date/Time Associated Diagnosis Comme nts SURGICAL PATHOLOGY Routine 05/25/2015 8:51 EST Re sults for this procedure are i n the results section. PAP TEST- RESULT Routine 05/25/2015 0:00 EST Resu lts for this ONLY procedure are i n the results section. documented in this encounter Results SURGICAL PATHOLOGY (05/25/2015 8:51 EST) Pathology SURGICAL PATHOLOGY REPORT [facility] Report: Reports generated via electronic interface conta in original data; [facility] however they are lacking the format of the original re port. SERVICES Caution should be taken when reading/interpreting unfo rmatted reports. Name: ? GIANNA SUMMERS ? Accession #: ? [id number] ? : ? 1960 (Age: [age]) ??F ? Collect Date: ? 05/25/2015 ? Location: ? [facility] ? Receive Date: ? 015 ? Provider: ROSI NAVA MD Copy to: ? Final Pathologic Diagnosis: CERVIX, POLYPECTOMY: - ??Benign endocervical polyp. - ??Detached fragments of squamous epithelium with atr ophic changes. ??See comment. Comment: Warehousing Technician slides from this case were reviewed at the intradepartmental consultation conference. ??(Dr. Snell) ?? Document reviewed and electronically signed by: ALNIA SNELL MD Report ??Date: 05/28/2015 21:17 By the signature above, the attending physician certif ies that he/she has personally conducted a gross and/or microscopic examin ation of the described specimens and rendered or confirmed the above diagnosi s. Specimen(s) Received: Large cervical polyp Clinical History: Pain with intercourse, he's hitting something; cervi jesse polyp Gross Description: ? Received in formalin labelled with proper patient identification (initials L, D) and endo bx is a hernandez -stearns hyperemic nodular polypoid soft tissue (1.6 x 1.0 x 0.5 cm). The surgical margin is not definitively identified. There is 0.25 cc of attached hernandez-stearns mucinous materia l. The specimen is entirely submitted, with the polypoid structure trisected as 1 and the attached mucinous material as 2. Kalie Trinh 05/26/2015 10:13 AM End of Report Specimen Performing Organization Address City/State/ZIP Code Phon e Number [facility] [address] [place] [address] SERVICES PAP TEST- RESULT ONLY (05/25/2015 0:00 EST) Pathology Report: CYTOPATHOLOGY REPORT [facility] Reports generated via electronic interface contain marisela ginal data; SERVICES however they are lacking the format of the original re port. Caution should be taken when reading/interpreting unfo rmatted reports. Name: ? GIANNA SUMMERS ? Accession #: ? [id number] ? : ? 1960 (Age: [age]) ??F ?Collect Da te: ? 05/25/2015 ? Location: ? [facility] ? Receive Date: ? 05/26/20 15 ? Provider: ROSI NAVA MD Copy to: ? Final Report SPECIMEN ADEQUACY ? Satisfactory for Evaluation - transformation zone component present GENERAL CATEGORIZATION ? Negative for Intraepithelial Lesion or Malignan cy INTERPRETATION ? Reactive cellular arpan nges associated with inflammation present (includes repair). Menstrual/ Status: ??Post Menopausal Hormonal/Contraceptive status: None Treatment History: None Specimen/Source: ??Pap Test, Cervix/Endocervix, ThinPr ep Imaging System with manual evaluation Document reviewed and electronically signed by: ? ARNULFO RODRIGUES MD ? Report ??Date: 05/29/2015 12:13 HPV with Pap Test ? Date Ordered: ? 05/29/2015 ? Status: ?? Signed Out ?Date Complete: ? 06/02/2015 ? By: ??Sy stem Interface ? Date Reported: ? 06/02/2015 ? Interpretation RESULT: Negative for HPV. No E6 or E7 mRNA is detected from HPV types 16,18,31,3 3,35, 39,45,51,52,56,58,59,66, and 68 by stripper latex media lady amplification. Comments Document reviewed and electronically signed by: ? System Interface ? Report date: 06/02/2015 By the signature above, the attending physician certif ies that he/she has personally conducted a gross and/or microscopic examin ation of the described specimens and rendered or confirmed the above diagnosi s. End of Report Specimen Performing Organization Address City/State/ZIP Code Phon e Number [facility] [address] [place] [address] SERVICES documented in this encounter Visit Diagnoses Not on filedocumented in this encounter Care Teams Motion Picture Commentator Relationship Specialty Start Date End Date Unknown, Provider, PCP - General 04/30/15 documented as of this encounter
--- OUTSIDE RECORDS SUMMARY | 2022-01-13 00:49 | XMS_ITS | Encounter Summary ---
:1960 Author Organization [facility] Address [address] [place] [address] Care Team Providers Name Role Phone Unknown, Provider Primary Care Provider Encounter Details Date Type Department Care Team Description 05/25/2015 Hospital Encounter [facility] - S Unknown, Pro Otis rockwell MD 1 [facility] [phone] [place] [address] (Work) [phone] Social History Tobacco Use Types Packs/Day Years Used Date Never Assessed Sex Assigned at Date Recorded Not on file documented as of this encounter Discharge Disposition Disposition Code Departure Means Destination Home or Self Group Home documented in this encounter Plan of Treatment Not on filedocumented as of this encounter Visit Diagnoses Not on filedocumented in this encounter Care Teams Feather Stitcher Relationship Specialty Start Date End Date Unknown, Provider, PCP - General 04/30/15 documented as of this encounter
--- OUTSIDE RECORDS SUMMARY | 2022-01-13 00:49 | XMS_ITS | Encounter Summary ---
:1960 Author Organization [facility] Address [address] [place] [address] Care Team Providers Name Role Phone Unknown, Provider Primary Care Provider Encounter Details Date Type Department Care Team Description 03/18/2019 Results Only [facility] Baldemar Benavides, [address] [place] [address] [place] [address] (Wo rk) Social History Tobacco Use Types Packs/Day Years Used Date Never Assessed Sex Assigned at Date Recorded Not on file documented as of this encounter Plan of Treatment Not on filedocumented as of this encounter Procedures Procedure Name Priority Date/Time Associated Diagnosis Comme nts SURGICAL PATHOLOGY Routine 03/18/2019 17:07 Resul ts for this EDT procedure are i n the results section. documented in this encounter Results SURGICAL PATHOLOGY (03/18/2019 17:07 EDT) Pathology Report: SURGICAL PATHOLOGY REPORT [facility] Reports generated via electronic interface contain marisela ginal data; LABORATORY however they are lacking the format of the original re port. SERVICES Caution should be taken when reading/interpreting unfo rmatted reports. Name: ? GIANNA SUMMERS ? Accession #: ? [id number] ? : ? 1960 (Age: [age]) ??F ? Collect Date: ? 03/18/2019 ? Location: ? [facility] ? Receive Date: ? 03/18/20 19 ? Provider: BALDEMAR BENAVIDES MD Copy to: BAILEE NAVA MD ? Final Pathologic Diagnosis: A. STOMACH, PYLORUS, BIOPSY: - Gastric antral mucosa with no significant diagnostic abnormality. B. STOMACH, ANTRUM, BIOPSY: - Gastric fundic mucosa with no significant diagnostic abnormality. C. ESOPHAGUS, GE JUNCTION, BIOPSY X2: - Gastric-type mucosa with mild active chronic inflamm ation. - Negative for intestinal metaplasia - Mild epithelial inflammatory atypia, negative for dy splasia. - Consistent with reflux esophagitis. Document reviewed and electronically signed by: PINEDA NI MD Report ??Date: 03/19/2019 14:35 By the signature above, the attending physician certif ies that he/she has personally conducted a gross and/or microscopic examin ation of the described specimens and rendered or confirmed the above diagnosi s. Specimen(s) Received: A. ??Pylorus bx B. ??Antrum bx C. ??GE junction bxs (x2) Clinical History: Dysphagia Gross Description: A. ?Received in formalin labelled with proper p atient identification (initials L, D) and pylorus BX is a single pink-hernandez tissue fragment (0.2 x 0.2 x 0.2 cm). Submitted intact in block A1. B. ?Received in formalin labelled with proper p atient identification (initials L, D) and antrum BX are two pink-hernandez tissues (0.3 x 0.2 x 0.1 cm and 0.3 x 0.3 x 0.2 cm). Entirely submitted in block B1. C. ?Received in formalin labelled with proper p atient identification (initials L, D) and GE junction biopsies x2 ar e two pink-hernandez tissues (0.3 x 0.3 x 0.3 cm to 0.5 x 0.4 x 0.2 cm). Entirely submitte d in block C1. UBALDO Colindres ([facility]) 03/19/2019 8:03 AM End of Report Specimen Performing Organization Address City/State/ZIP Code Phon e Number [facility] [address] [place] [id number] SERVICES documented in this encounter Visit Diagnoses Not on filedocumented in this encounter Care Teams Linesperson Relationship Specialty Start Date End Date Unknown, Provider, PCP - General 04/30/15 documented as of this encounter
--- OUTSIDE RECORDS SUMMARY | 2022-01-13 00:49 | XMS_ITS | Encounter Summary ---
:1960 Author Organization [facility] [place] [address] Care Team Providers Name Role Phone Rosi De Leon MD Primary Care Provider Reason for Visit Reason Comments Encopresis Encounter Details Date Type Department Care Team Description 03/10/2011 Office Visit Physical Therapy at J Carlos Gross, ABELARDO [facility]YSICAL MEDICINE & [place] [address] Pelvic muscle wasting [facility] [place] Rory Tate MD [facility] [place] [address] (Primary Dx) [place] [id number] Social History Tobacco Use Types Packs/Day Years [...] on file documented as of this encounter Progress Notes Macho Gross, PT - 03/10/2011 8:31 AM EDT Physical Therapy Initial Evaluation Note: Outpatient Date of Exam/First Treatment: 03/10/2011 Date of onset: Referring Provider: Rory Tate MD Diagnosis: Pelvic muscle wasting associated with fecal incontinence History of current problem: Marielle Summers is a 50 y.o. female referred to physical therapy for fecal incontinence. The patient states that she has gained 50 pounds over the past year but has not changed medications or denies trauma. 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 She has incontinence of bowel with walking and sexual intercourse. Patient's expressed goals for treatment: Continence Previous treatment/self care: blair Sexual Dysfunction/Pain: Sexually Active: Yes Pain level with intercourse: No Level 1: painful, but able to have penetration at same frequency Level 2: painful and limits frequency Level 3: painful and prevents penetration Bladder Function: Leaks with: No leakage of urine Bowel Dysfunction: Frequency of bowel movements: every 3 days Consistency of stool: soft Currently strain to void: Yes Include fiber in diet: Yes Take laxatives/enema regularly: No Have a strong urge to move bowels:Yes History of Constipation: Yes Have diarrhea often: No Ignore the urge to defecate: No Feel you have not completely emptied your bowels at the end of a BM: No Do you have to push on the vagina or rectum to have or complete a BM: No Fecal incontinence: yes gas, liquid, formed stool Fluid Intake: glasses per day: 5 caffeinated beverages: did not ask Alcoholic beverages: did not ask Medical/Surgical History: refer to electronic medical record Prior Level of Function: continent one year ago Functional Limitations: incontinence OBJECTIVE: OBSERVATION: Patient is a pleasant woman in no acute distress POSTURE: Good spinal and pelvic alignment STRENGTH: lower extremity grossly 5/5 Patient gives verbal consent to external and internal exam. External Exam: Introitus: closed at rest, loose , symmetric Pelvic Floor Contraction: moderate levator ani activity with perineal body elevation Palpation: Non-tender to pelvic clock Internal Exam: Levator ani muscle strength: 3:00 3/5, 6:00 3/5, and 9:00 3/5 Levator ani muscle tone: 3/5 Hold Time: 2 seconds, # of reps: SEMG: with internal electrode in supine Resting Rate: 4 uV decreased to 2 mv Quick flicks: 15 uV x 5reps Long Hold: 10 uV x 2 seconds x 2 reps Assessment: These findings are consistent with fecal incontinence, constipation, muscle weakness Patient presents with: Underactive pelvic floor muscles, Impaired strength and Impaired endurance Physical therapy is indicated to: increase strength, increase pelvic floor strength and increase endurance Goals: Short term goals (4 weeks) 1. Patient to be indep in the performance of a home program of pelvic floor muscle exercises on a daily basis. 2. Patient will demonstrate an increase in pelvic floor muscle endurance from 2 sec to 5 sec. 3. Patient to complete 120 long hold kegels per day. Goals: [facility] goals (3 months) 1. Patient to be independent with ongoing self management. 2. Patient will have decrease of fecal incontinence by 10%. 3. ADL???s not limited by AI, urgency or frequency. Frequency: 1 time in 2 weeks for 6 sessions Plan of care: therapeutic exercise, pelvic floor muscle exercises, SEMG, STM/MFR, stretching, patient/family education, home exercise program Informed Consent: The patient consented to the physical therapy evaluation. The patient agrees to and understands the physical therapy treatment plan and goals. Interventions completed today: initial evaluation, patient education and strengthening Total Treatment time: 60 minutes Total Timed Code Treatment: 15 minutes MACHO GROSS PT, PT documented in this encounter Plan of Treatment Not on filedocumented as of this encounter Visit Diagnoses Diagnosis Pelvic muscle wasting - Primary documented in this encounter Care Teams Equity Director Relationship Specialty Start Date End Date Rosi De Leon MD PCP - General 05/18/[address] [place] [id number] documented as of this encounter
--- OUTSIDE RECORDS SUMMARY | 2022-01-13 00:49 | XMS_ITS | Encounter Summary ---
:1960 Author Organization [facility] Address [address] [place] [address] Care Team Providers Name Role Phone Unknown, Provider MD Primary Care Provider Encounter Details Date Type Department Care Team Description 10/30/2019 Lab Requisition [facility] Outr Resulting Lab, Pathology & Laboratory Provider [facility] [address] [place], [place] [id number] Social History Tobacco Use Types Packs/Day Years Used Date Never Assessed Sex Assigned at Date Recorded Not on file documented as of this encounter Plan of Treatment Not on filedocumented as of this encounter Procedures Procedure Name Priority Date/Time Associated Diagnosis Comme nts COVID-19 TEST [facility] Today 10/30/2019 13:58 LAB PCR EDT COVID-19 TESTING Routine 10/30/2019 13:58 Results for this EDT procedure are i n the results section. documented in this encounter Results COVID-19 TEST [facility] LAB PCR (10/30/2019 13:58 EDT) Specimen Swab - Entire nasopharynx (body structur e) Performing Organization Address City/State/ZIP Code Phon e Number [facility] [address] [place] [address] SERVICES COVID-19 TESTING (10/30/2019 13:58 EDT) COVID-19 rt-PCR Negative Negative [facility] Result Comment: [facility] Negative results do not prec lude 2019-nCoV infection and should not be used as the sole basis for treatment or other patient management decisions. Negative results must be combined with clinical observa SERVICES tions, patient history, and epidemiological informatio n. This test was developed and its performance characteristics determined by [facility]. It has not been cleared or approved by the US Food and Drug Administration. FDA does not require this test to go through premarket FDA review. This t est is used for clinical purposes. It should not be regarded as investigational or for research. This laboratory is certified under the Clinical Laboratory Improvement Amendm ents (CLIA) as qualified to perform high complexity clinical laboratory testing. This test is based on the CD C COVID-19 Emergency Use Authorization (EUA) assay, with minor modification as defined by the FDA Performed on the [employer] Fast. Performing Lab [facility] Hospital Lab [facility] SERVICES Specimen Swab - Entire nasopharynx (body structur e) Performing Organization Address City/State/ZIP Code Phon e Number [facility] [address] [place] [address] SERVICES documented in this encounter Visit Diagnoses Not on filedocumented in this encounter Care Teams Toy Assembly Supervisor Relationship Specialty Start Date End Date Unknown, Provider, PCP - General 04/30/15 documented as of this encounter
--- OUTSIDE RECORDS SUMMARY | 2022-01-13 00:49 | XMS_ITS | Clinical Summary ---
:1960 Author Organization [facility] Address [address] [place] [address] Care Team Providers Name Role Phone Unknown, Provider Primary Care Provider Social History Tobacco Use Types Packs/Day Years Used Date Never Assessed Sex Assigned at Date Recorded Not on file Plan of Treatment Not on file Care Teams Machine Etcher Relationship Specialty Start Date End Date Unknown, Provider, PCP - General 04/30/15
--- OUTSIDE RECORDS SUMMARY | 2022-01-13 00:49 | XMS_ITS | Encounter Summary ---
:1960 Author Organization [facility] Address [address] [place] [address] Care Team Providers Name Role Phone Unavailable Primary Care Provider Unavailable Encounter Details Date Type Department Care Team Description 02/26/[address] [facility] Dao, Visit ([place]) Nithya zamora MD [address] [place] [address] Social History Tobacco Use Types Packs/Day Years Used Date Never Assessed Sex Assigned at Date Recorded Not on file documented as of this encounter Plan of Treatment Not on filedocumented as of this encounter Procedures Procedure Name Priority Date/Time Associated Diagnosis Comme nts CYTOPATHOLOGY Routine 02/26/2008 0:00 EDT Results for this procedure are i n the results section . documented in this encounter Results CYTOPATHOLOGY (02/26/2008 0:00 EDT) Pathology Report: CYTOPATHOLOGY REPORT ? [facility] ? LAB Reports generated via electr [employer] interface contain original data; ? however they are lacking the format of the original report. ? Caution should be taken when reading/interpreting unformatted reports. ? Name: ? GIANNA SUMMERS ? Accession #: ? [id number] ? : ? 1960 (Age: 47) ??F ?Collect Date: ? 02/26/2008 ? Location: ? [facility] ? Receive Date: ? 02/26/2008 ? Provider: ?MARIBEL KING IER MD ? Copy to: ? Specimen/Source: ? ThinPrep Pap Test, Cervix/Endocervix, processed on Cytyc ThinPrep Imaging System, wit h manual evaluation ? Last Menstrual Period: ? Other: ? Additional clinical informat ion: Dysparunea ? SPECIMEN ADEQUACY ? Satisfactory for Eval uation ? - transformation zone compon ent present ? GENERAL CATEGORIZATION ? Negative for Intraepi thelial Lesion or Malignancy ? INTERPRETATION ? Reactive cellular arpan nges associated with inflammation present (includes ?? repair). ? Document reviewed and electr onically signed by: ? Katya Roblero, MBBCh ? Report Date: ??09/08/ 2008 16:55 ? End of Report ? Specimen Performing Organization Address City/State/ZIP Code Phon e Number [facility] [address] [place] [address] SERVICES [facility] [address] [place] [address] documented in this encounter Visit Diagnoses Not on filedocumented in this encounter
--- OUTSIDE RECORDS SUMMARY | 2022-01-13 00:49 | XMS_ITS | Clinical Summary ---
:1960 Author Organization [facility] [address] [place] [address] Care Team Providers Name Role Phone Rosi De Leon MD Primary Care Provider Allergies Active Allergy Reactions Severity Noted Date Comments Codeine Phosphate CIS - Naus ea/Vomiting Sumatriptan High CIS - Chest Pre ssure/Edema Medications Medication Sig Dispensed Refills Start Date End Date Status CIS Free Text Med - Indocin 0 04/26/2004 Active lisinopril 10MG, PO, 0 06/30/2005 Active (PRINIVIL;ZESTRIL) 10 mg Once daily tablet Indomethacin (INDOCIN) 50 0 06/30/2005 Active mg suppository losartan (COZAAR) 50 mg Take by mouth 0 Active tablet daily. hydrochlorothiazide Take 12.5 mg 0 Active (HYDRODIURIL) 25 mg tablet by mouth daily. potassium chloride Take 20 mEq 0 Active (KAYCIEL) 10 % solution by mouth daily. calcium carbonate 648 mg Take 650 mg 0 Active tablet by mouth 2 times daily. doxazosin (CARDURA) 2 mg Take 2 mg by 0 Active tablet mouth nightly. Active Problems Problem Noted Date Fecal incontinence 03/10/2011 Social History Tobacco Use Types Packs/Day Years [...] Assigned at Date Recorded Not on file Last Filed Vital Signs Vital Sign Reading [...] Mass Index 32.69 01/25/2011 7:12 AM EDT Plan of Treatment Health Maintenance Due Date Last Done Comments Covid-19 Vaccine (#1) 1963 HIV screen 1976 Hepatitis C Screening 1976 Tdap adult 1977 Tetanus vaccine 1977 HPV test 1988 PAP Smear 1988 Breast Cancer Share Decision Needed 1998 Breast Cancer screening 2008 Zoster vaccine (1 of 2) 2008 Advance Directive 2013 Colonoscopy 01/25/2021 01/25/2011, 01/25/2011, 01/25/2011 Influenza (Flu) vaccine (1 of 1 - 02/24/2022 Influenza standard series) Care Teams Headlight Adjuster Relationship Specialty Start Date End Date Rosi De Leon MD PCP - General 05/18/10 [address] [place] [address]
--- OUTSIDE RECORDS SUMMARY | 2022-01-13 00:49 | XMS_ITS | Encounter Summary ---
:1960 Author Organization [facility] Address [address] [place] [address] Care Team Providers Name Role Phone Unavailable Primary Care Provider Unavailable Encounter Details Date Type Department Care Team Description 04/03/2007 Results Only [facility] - Maribel Davila MD conversion [address] [place] [address] Social History Tobacco Use Types Packs/Day Years Used Date Never Assessed Sex Assigned at Date Recorded Not on file documented as of this encounter Plan of Treatment Not on filedocumented as of this encounter Procedures Procedure Name Priority Date/Time Associated Diagnosis Comme nts SURGICAL PATHOLOGY Routine 04/03/2007 0:00 EDT Re sults for this procedure are i n the results section. documented in this encounter Results SURGICAL PATHOLOGY (04/03/2007 0:00 EDT) Pathology Report: SURGICAL PATHOLOGY REPORT AYESHA CALIXTO Reports generated via electronic interface contain marisela ginal data; LAB however they are lacking the format of the original re port. Caution should be taken when reading/interpreting unfo rmatted reports. Name: ? GIANNA SUMMERS ? Accession #: ? [id number] ? : ? 1960 (Age: 47) ??F ? Collect Date: ? 04/03/2007 ? Location: ? [facility] ? Receive Date: ? 007 ? Provider: MARIBEL ARIAS MD Copy to: BAILEE NAVA MD ? Final Pathologic Diagnosis: ? Endometrium, biopsy: - Fragments of weakly proliferative endometrium with t ubal metaplasia. Document reviewed and electronically signed by: ARGENIS BROTHERS MD Report ??Date: 04/04/2007 14:42 By the signature above, the attending physician certif ies that he/she has personally conducted a gross and/or microscopic examin ation of the described specimens and rendered or confirmed the above diagnosi s. Specimen(s) Received: ? Endo biopsy (endometrium) Clinical History: ? Irreg bleeding; LMP: 03/02/07 Gross Description: ? Received in formalin labelled [place] and endometrium are 1.0 x 1.0 x 0.3 cm of multiple hernandez-pink to red hemorrhagic predo minantly mucoid soft tissue fragments. ??The spec imen is entirely submitted in one cassette following filtration. ??(Lana Hays/[facility] End of Report Specimen Performing Organization Address City/State/ZIP Code Phon e Number [facility] [address] [place] [address] SERVICES [facility] [address] [place] [address] documented in this encounter Visit Diagnoses Not on filedocumented in this encounter
--- OUTSIDE RECORDS SUMMARY | 2022-01-13 00:49 | XMS_ITS | Encounter Summary ---
:1960 Author Organization [facility] [place] [address] Care Team Providers Name Role Phone Rosi De Leon MD Primary Care Provider Encounter Details Date Type Department Care Team Description 04/30/2020 Hospital Encounter Laboratory [facility] [place] [address] Social History Tobacco Use Types Packs/Day Years [...] on file documented as of this encounter Medications at Time of Discharge [...] 04/26/20 04 documented as of this encounter Plan of Treatment Not on filedocumented as of this encounter Procedures Procedure Name Priority Date/Time Associated Diagnosis Comme nts COVID-19 PCR Routine 04/30/2020 8:05 AM Results f or this EST procedure are i n the results section . documented in this encounter Results COVID-19 PCR (04/30/2020 8:05 AM EST) [facility] Method Time Signature SARS-CoV-2 Not Detected Not Detected JOHNNIE RNA [facility] Comment: This result should be interpreted in com bination with the clinical observations, patient history and epidem iological information in making a final diagnosis. For testing of asymptomatic i ndividuals, assay performance characteristics and clinical utility hav e not been evaluated. Testing for SARS-CoV-2 (Severe acute respiratory syn drome coronavirus 2, formerly known as 2019 novel coronavirus or 2019-nCoV) to aid in the diagnosis of COVID-19 is performed using the [employer] RealTime SARS -CoV-2 Assay as authorized by the FDA Emergency Use Authorization (EUA). This EUA assay is intended for In-vitro Diagnostic (IVD) use with respiratory sp ecimens such as nasopharyngeal swabs collected from individuals during the ac ho phase of infection. This assay is performed based on the instructions for use provided by [employer] and additional guidance provided by CDC and FDA. Testing is performed in the [facility] within the Department of Pathology and Laboratory Medicine at [facility], certified under the Clinical Laboratory Improvement Amendments of 1988 (CLIA), 42 U.S.C. 263a, to perform high complexi ty tests. Assay performance has been verified according to clinical laborator y regulatory requirements for use with specimens collected from individuals robert pected of COVID-19. Test results are provided above. A result of ? Not Detected? indicates that the viral RNA target is not present above the limit of detect ion, but does not preclude SARS-CoV-2 infection. False negative results may oc cur if a specimen is improperly collected, transported or handled; if am plification inhibitors are present; or if inadequate numbers of viral particles are present in the specimen. When a diagnostic test is negative, the possibi lity of a false negative result should be considered in the context of a patien t? s recent exposures and the presence of clinical signs and symptoms consisten t with COVID-19. A result of ? Detected? indicates that RNA from SARS-CoV-2 was d etected and the patient is infected. As required or requested by public health a uthorities, positive specimens may be sent for additional testing. Positive an d negative predictive values for this test are highly dependent on disease pre valence. A result of ? Invalid? indicates that neither the viral RNA tar gets nor the internal control target was detected. An invalid result suggests the presence of inhibitors. Recollection and re-testing is recommend ed in the case of an invalid result. CDC COVID-19 criteria for testing on hum an specimens and clinical management guidance information are available at [facility] CDC Coronavirus Disease 2019 (COVID-19) webpage under ? Information for Healthcare Professionals? (https://www.cdc.gov/coronavirus/2019-nc ov/hcp/index.html) Additional information about this and ot her EUA tests can be found in provider and patient fact sheets at the following FDA website: https://www.fda.gov/medical-devices/byddvzotbpm-hhmavcb-6876-nbfyh-14-owsefscrd- bym-qjdzckjddtlqps-hhmhvlg-devices/zmjcb-mvwufuugqqi-ypmq SARS-Cov-2 RNA Source Nasal [facility] Specimen Anatomical Collection Method Collection Time Receive d Time (Source) Location / / Volume Laterality Specimen from Other / Unknown 04/30/2020 8:05 AM 05/02 1:47 nose (specimen) EST AM EST Resulting Agency Comment Spec In Lab Monster Shahida Lucy SCALING MACHINE OPERATOR MICROBIOLOGY - GENERAL ORDER STEVIE Performing Organization Address City/State/[place] [address] documented in this encounter Visit Diagnoses Not on filedocumented in this encounter Care Teams Licensed Funeral Director And Embalmer Relationship Specialty Start Date End Date Rosi De Leon MD PCP - General 05/18/10 [address] [place], [place] [id number] documented as of this encounter
--- OUTSIDE RECORDS SUMMARY | 2022-01-13 00:49 | XMS_ITS | Encounter Summary ---
:1960 Author Organization [facility] [place] [address] Care Team Providers Name Role Phone Rosi De Leon MD Primary Care Provider Encounter Details Date Type Department Care Team Description 01/25/2011 Hospital Encounter [place] [facility] [place]ory Tate, [facility] [place] [address] [facility] [phone] [facility] [place], [place] [address] Social History Tobacco Use Types Packs/Day Years [...] in this encounter Discharge Instructions Patient InstructionsRory Tate MD - 01/25/2011 8:41 AM EDT Please see Recommendations in the Provation procedure report which is documented in the procedural note in [facility]. AttachmentsThe following attachments cannot be sent through Care Everywhere. ENDOSCOPIC ULTRASOUND (RECTAL): WHAT TO EXPECT AT HOME (LAO)UPPER GI ENDOSCOPY: WHAT TO EXPECT AT HOME (LAO)documented in this encounter Medications at Time of [...] 01/25/2011 8:01 AM reflux/incont inence WITH BX (VU 3.66) EDT /abnormal ab d xray W/ [...] SURGICAL PATHOLOGY REPORT (01/25/2011 10:25 AM EDT) [facility] Method Time Signature Surgical CERNER Pathology ? [facility] Report ? Provider: ?? RORY TATE ?Pt. Name: ?? ESHATON TONYMARIELLE ? Acc #: ?[id number] ?Pt. MRN: ?[id number] ? Col Date: ?? 01/25/2011 ?/Sex: ?1960,(50 years),Female ? Rec Date: ?? 01/25/2011 ?LOC: ?4T ? SURGICAL PATHOLOGY ? ---Pathologic Diagnosis--- ? A - Colon, random biopsies: ? Colonic mucosa, negative for diagnostic abnorma lity. ? B - Gastric antrum, biopsy: ? Gastric antrum-type mucosa with mild reactive g astropathy. ? CR-0, CR-PX ? 01/27/11 ? VMS ? 01/27/11 Verified by: ? Bird Reynoso MD ? Pathologist ? (Electronic Si gnature) ? [...] PATHOLOGY/CYTOLOGY ORDERABLE S Performing Organization Address City/State/[place] [address] [facility] (01/25/2011 7:53 AM EDT) [facility] gist Method Time Signature COLONOSCOPY [facility] Endoscopy Patient Name: Marielle Summers ? Procedure Date: 01/25/2011 07:53:44 AM ? N: [id number] ? Date of : 1960 ? Age: 50 ? Procedure: ? Colonoscopy Indications: ? Screening for malignant neoplasm in ? the colon, fecal incontinence Providers: ? Rory Tate MD Referring MD: ?Rosi De Leon MD Medicines: [...] UPPER GI ENDOSCOPY (01/25/2011 7:53 AM EDT) [facility] gist Method Time Signature UPPER GI [facility] ENDOSCOPY Endoscopy Patient Name: Marielle Summers ? Procedure Date: 01/25/2011 07:53:20 AM ? N: [id number] ? Date of : 1960 ? Age: [...] reactions. The ? Endoscope [facility] the ? mouth, and advanced to the critical access hospitald part ? of duodenum. The patient tole [...] Active and Recently Administered Medications Care Teams Millwright Helper Relationship Specialty Start Date End Date Rosi De Leon MD PCP - General 05/18/10 [address] [place] [address] documented as of this encounter
--- OUTSIDE RECORDS SUMMARY | 2022-01-13 00:49 | XMS_ITS | Encounter Summary ---
:1960 Author Organization [facility] Address [address] [place] [address] Care Team Providers Name Role Phone Unknown, Provider Primary Care Provider Encounter Details Date Type Department Care Team Description 03/18/2019 Hospital Encounter [facility] - S Unknown, Pro Otis rockwell MD [address] [facility] [phone] [place] [address] (Work) [phone] Social History Tobacco Use Types Packs/Day Years Used Date Never Assessed Sex Assigned at Date Recorded Not on file documented as of this encounter Discharge Disposition Disposition Code Departure Means Destination Home or Self Intermediate documented in this encounter Plan of Treatment Not on filedocumented as of this encounter Visit Diagnoses Not on filedocumented in this encounter Care Teams Processing Inspector Relationship Specialty Start Date End Date Unknown, Provider, PCP - General 04/30/15 documented as of this encounter
== END ==
PROVIDERS: PCP Family Medicine; Visit Provider Obstetrics & Gynecology
DX: N64.4 Mastodynia (principal); Z80.3 Family history of malignant neoplasm of breast; R92.8 Other abnormal and inconclusive findings on diagnostic imaging of breast; Z12.31 Encounter for screening mammogram for malignant neoplasm of breast
CPT/HCPCS: 77062; 77066; G0279

== ENCOUNTER 2022-05-18 02:39 | Outpatient (CLI) | payer OTHER, SELFPAY ==
[2022-05-18 09:22] LABS: HCT 42.3 % (36.0-46.0); HGB 13.5 g/dL (11.2-15.7); MCH 28.9 pg (27.0-33.0); MCHC 31.9 % (32.0-36.0); MCV 91 fL (80-95); Platelet Count 303 10^3/uL (130-400); RBC 4.67 10^6/uL (3.93-5.22); RDW 12.8 % (11.7-14.6); RDW-SD 42.2 fL; WBC 5.89 10^3/uL (4.4-10.8)
[2022-05-18 09:40] LABS: ALT 24 U/L (14-59); AST 16 U/L (15-37); Albumin 3.6 g/dL (3.4-5.0); Alkaline Phosphatase 88 U/L (46-116); Anion Gap 5.7 mmol/L (3-11); BUN 19 mg/dL (7-18); Bilirubin, Total 0.7 mg/dL (0.2-1.0); CO2 30.3 mmol/L (21.0-32.0); CREATININE 0.7 mg/dL (0.55-1.02); Calcium 9.2 mg/dL (8.5-10.1); Chloride 103 mmol/L (98-107); Estimated GFR 96.52 (mL/min/1.73m2); Glucose 103 mg/dL (74-106); Sodium 139 mmol/L (136-145); Total Protein 7.3 g/dL (6.4-8.2)
== END 2022-05-18 02:40 | disposition home or self-care (01) ==
LOC: LBO 02:39
PROVIDERS: PCP Family Medicine; Visit Provider Family Medicine
DX: I10 Essential (primary) hypertension (principal); R71.8 Other abnormality of red blood cells
CPT/HCPCS: 36415; 80053; 85027

== ENCOUNTER → 2023-08-21 02:59 | Outpatient (CLI) | payer BC, SELFPAY ==
--- NOTE | 2023-08-21 07:15 | DI.MAMMO_ITS ---
Exam(s) MAMMO SCREENING EXAM: MAMMO SCREENING CLINICAL HISTORY: screening,Z12.39. TECHNIQUE: Bilateral full field digital CC and MLO mammographic images were obtained with 3D tomosyn thesis and utilizing computer aided detection (CAD). COMPARISON: Prior mammograms were reviewed. Prior ultrasound January 2022 reviewed. FINDINGS: There has been no significant change in the appearance and distribution of the fibroglandular tissue. No new right breast findings. Small asymmetric nodular densities in left breast are unchanged from prior mammograms and therefore b enign. There are no new spiculated masses nor new malignant appearing microcalcification groups. There is no significant architectural distortion nor skin thickening-retraction. IMPRESSION: Stable benign findings. No radiographic evidence of malignancy. BI-RADS Category 2 - Benign Findings Breast Density - Category B - Scattered areas of fibroglandular density Breast density Category C or D implies that the patient has dense breast tissue. Dense breast tissue can make it harder to find cancer on a mammogram. Dense breast tissue is also associated with an incr eased risk of breast cancer. This information about the result of the mammogram report was provided to the patient to raise their awareness. Use this report when you speak with the patient about their risks for breast cancer, which includes their family history. At that time, you may recommend additional screening tests (Ultrasoun d or MRI) as these tests may add significant information. A negative radiographic report should not delay biopsy if a dominant or clinically suspicious mass is present. Up to ten percent of cancers are not identified on mammography. A negative report may reinforce clinical impression. Adenosis and dense breasts may obscure an underlying neoplasm. False positive reports average 6 to 10%. Patient will receive a letter notifying them of these results.
== END ==
PROVIDERS: PCP Family Medicine; Visit Provider Family Medicine
DX: Z12.31 Encounter for screening mammogram for malignant neoplasm of breast (principal)
CPT/HCPCS: 77063; 77067

== ENCOUNTER 2023-09-04 03:21 | Outpatient (CLI) | payer BC, SELFPAY ==
[2023-09-04 16:49] LABS: ALT 23 U/L (14-59); AST 14 U/L (15-37); Albumin 3.7 g/dL (3.4-5.0); Alkaline Phosphatase 81 U/L (46-116); BUN 18 mg/dL (7-18); Bilirubin, Total 0.6 mg/dL (0.2-1.0); CREATININE 0.8 mg/dL (0.55-1.02); Calcium 9.7 mg/dL (8.5-10.1); Chloride 107 mmol/L (98-107); Estimated GFR 81.72 (mL/min/1.73m2); Glucose 103 mg/dL (74-106); Potassium 4.1 mmol/L (3.5-5.1); Sodium 145 mmol/L (136-145); Total Protein 7.1 g/dL (6.4-8.2); Vitamin B12 442 pg/mL (193-986)
== END 2023-09-04 03:22 | disposition home or self-care (01) ==
LOC: LBO 03:21
PROVIDERS: PCP Family Medicine; Visit Provider Family Medicine
DX: I10 Essential (primary) hypertension (principal); K29.60 Other gastritis without bleeding
CPT/HCPCS: 36415; 80053; 82607

== ENCOUNTER 2024-10-08 13:38 | Outpatient (REF) | payer OTHER, SELFPAY ==
[2024-10-08 15:03] LABS: Bilirubin Negative (Negative); Blood Negative (Negative); Clarity Clear (Clear); Glucose Negative (Negative); Ketones Negative (Negative); Leukocyte Esterase Negative (Negative); Nitrite Negative (Negative); Specific Gravity 1.025 (1.005-1.025); Urobilinogen 0.2 mg/dL (Up to 0.2)
== END 2024-10-08 13:39 | disposition home or self-care (01) ==
LOC: LBN 13:38
PROVIDERS: PCP Family Medicine; Visit Provider Family Medicine
DX: R10.9 Unspecified abdominal pain (principal)
CPT/HCPCS: 81003

== ENCOUNTER 2024-10-22 00:06 | Outpatient (CLI) | payer OTHER, SELFPAY ==
--- NOTE | 2024-10-22 06:30 | DI.CT_ITS ---
Exam(s) CT ABDOMEN PELVIS W EXAM: CT ABDOMEN PELVIS W CLINICAL HISTORY: suprapubic and RLQ pain,rlq abd mass,r19.03. TECHNIQUE: Imaging Protocol: Axial computed tomography images with coronal and sagittal reformatted images were created and reviewed CONTRAST MATERIAL: Intravenous: Omnipaque 350 Contrast volume:75 ml Oral: yes COMPARISON: CT CT RENAL COLIC WO from 10/23/2019 FINDINGS: ABDOMEN and PELVIS: Lung Bases: No acute findings. Small hiatal hernia. Liver: Normal density. No suspicious mass. Gallbladder and biliary tract: No radiodense calculus. No wall thickening or pericholecystic fluid. No biliary dilation. Pancreas: Normal density. No abnormal calcifications or inflammatory process. No evidence of mass. Spleen: Normal. Kidneys: Normal size, contour and axis. Small nonobstructing stone is present at the lower pole of t he right kidney. No obstructive uropathy. Stable simple left renal cyst. No suspicious masses seen . Adrenal glands: No masses seen. Vasculature: Abdominal aorta non-dilated. Soft tissues: Ovoid area of increased density at the right inguinal canal similar appearance to prior s may be secondary to previous hernia repair. No recurrence hernia. Bladder: No gross wall thickening. No calculi.No focal mass. Bowel: No obstruction. No bowel wall thickening. Appendix is not visualized. Moderate quantity of stool. Peritoneal cavity: No ascites. No focal collection. No mesenteric inflammatory response. No free air . Bones: Unremarkable for age. Reproductive organs: 3 cm anterior uterine fibroid. The ovaries are unremarkable. Lymph nodes: No pathologically enlarged lymph nodes. IMPRESSION:: 12 millimeter rounded density in the right inguinal region may be related to prior ing uinal hernia repair and does not appear significantly changed from the previous exam. Small nonobstructing size the lower pole of the right kidney. 3 centimeter uterine fibroid. RADIATION DOSE DELIVERED: 531.47mGy.cm Total DLP DATA REPOSITORY: All CT scans at this facility are submitted to the National Radiology Data Registry (NRDR) Dose Index Registry (DIR) with the [employer] (ACR). RADIATION OPTIMIZATION: All CT scans at this facility use at least one of these dose optimization te chniques: automated exposure control; mA and/or kV adjustment per patient size (includes targeted exa ms where dose is matched to clinical indication); or iterative reconstruction.
[2024-10-22 07:10] LABS: Abs Immature Grans 0.03 10^3/uL (0.0-0.06); Absolute Basophil Count 0.05 10^3/uL (0.0-0.2); Absolute Eosinophil Count 0.23 10^3/uL (0.0-0.7); Absolute Lymphocyte Count 1.81 10^3/uL (1.2-3.4); Absolute Monocyte Count 0.37 10^3/uL (0.1-0.8); Absolute Neutrophil Count 3.27 10^3/uL (1.2-6.7); Basophils % 0.9 %; HCT 42.5 % (36.0-46.0); HGB 13.6 g/dL (11.2-15.7); Immature Grans % 0.5 %; Lymphocytes % 31.4 %; MCH 29.1 pg (27.0-33.0); MCV 91 fL (80-95); MPV 9.8 fL (8.0-11.0); Monocytes % 6.4 %; Neutrophils % 56.8 %; Platelet Count 266 10^3/uL (130-400); RBC 4.67 10^6/uL (3.93-5.22); RDW 12.7 % (11.7-14.6); RDW-SD 42.1 fL; WBC 5.76 10^3/uL (4.4-10.8)
[2024-10-22] MEDS: Barium Sulfate 2% W/V-Creamy Vanilla Smoothie 450 ML BTL PO ×2 (07:10→07:11)
[2024-10-22 07:26] LABS: ALT 24 U/L (14-59); AST 16 U/L (15-37); Albumin 3.4 g/dL (3.4-5.0); Alkaline Phosphatase 93 U/L (46-116); Anion Gap 5.4 mmol/L (3-11); BUN 22 mg/dL (7-18); Bilirubin, Total 1.1 mg/dL (0.2-1.0); CO2 31.6 mmol/L (21.0-32.0); CREATININE 0.8 mg/dL (0.55-1.02); Calcium 8.8 mg/dL (8.5-10.1); Chloride 108 mmol/L (98-107); Estimated GFR 81.21 (mL/min/1.73m2); Glucose 105 mg/dL (74-106); Sodium 145 mmol/L (136-145); Total Protein 6.8 g/dL (6.4-8.2)
[2024-10-22] MEDS: Omnipaque 350 MG/ML 500 ML BTL-Imaging package IJ (09:34)
[2024-10-22] MEDS: Normal Saline - Diluent 50 ML VIAL IJ (09:35)
== END 2024-10-22 00:26 ==
LOC: DI 00:06
PROVIDERS: PCP Family Medicine; Visit Provider Family Medicine
DX: R19.03 Right lower quadrant abdominal swelling, mass and lump (principal); I10 Essential (primary) hypertension
CPT/HCPCS: 80053; 74177; 85025

== ENCOUNTER 2024-10-28 17:15 | Outpatient (REF) | payer OTHER, SELFPAY ==
[2024-10-28 21:36] LABS: Bilirubin Negative (Negative); Blood Negative (Negative); Clarity Clear (Clear); Glucose Negative (Negative); Ketones Negative (Negative); Leukocyte Esterase Negative (Negative); Nitrite Negative (Negative); Urobilinogen 0.2 mg/dL (Up to 0.2); pH 5.5 (5-8)
== END 2024-10-28 17:16 | disposition home or self-care (01) ==
LOC: LBN 17:15
PROVIDERS: PCP Family Medicine; Visit Provider Family Medicine
DX: R10.9 Unspecified abdominal pain (principal); N76.0 Acute vaginitis
CPT/HCPCS: 81003; 87480; 87510; 87660